=== PATIENT | male | born 1950 | race Caucasian/White ===

== ENCOUNTER 2024-06-18 17:04 | Inpatient (IN) | payer MEDICARE, OTHER, SELFPAY ==
[2024-06-18] VITALS (14 sets, daily range): BP systolic 111–139; BP diastolic 49–69; BMI 21.0
--- NOTE | 2024-06-18 13:05 | ED.PDOC.TRB ---
ED Provider Triage
-
A medical screening examination has been initiated by a qualified medical provider. Based on the assessment performed at this time, it has been determined that an emergent medical condition may exist and the patient has been informed that further
medical evaluation and possible additional diagnostic testing may be needed.
HPI: This is a medical evaluation conducted in person to initiate diagnostic evaluation and provide initial therapeutics. Please see further documentation by the treating clinician.
GENERAL: Alert , in no apparent distress
EYE:
PALE.
NECK: Trachea midline
ENT: No visible abnormalities.
LUNGS: No acute respiratory distress
rhonchi b/l
NEUROLOGICAL: Alert and oriented x 1; seems confused; following some commnads; no weakness on exam, no asterixis, [id number]
SKIN: pale, jaundice
MUSCULOS pneumonia
Ice KELETAL:
PSYCH: confused
73-year-old male with newly diagnosed prostate cancer, on oral chemotherap, getting set up with radiation who presents with a change in mental status noticed maybe around 8 AM this morning when he came down. Over the past few days he has been more
short of breath. One of his physicians took him off prednisone and another medication thinking this was the cause., This is somewhat confusing, his history has been given by his .
He came downstairs this morning and made coffee but then said he felt crappy so he went to lay down. Following that he seemed a bit more disoriented which is unusual for him. He can normally answer questions well. She also thinks he looks pale.
Patient does drink alcohol daily but not excessively. He has never had any alcohol withdrawal. On exam the patient appears pale, possibly jaundice, is disoriented at times seemingly difficult to follow some commands but then follows others. He
has no asterixis. There is no appreciated slurred speech or focal weakness. It is really unclear when this change in mental status happen, the patient was normal last night. They did not speak to him this morning until after 8 AM.
Will order labs including an ammonia
As well as a head CT, I suspect that this is a metabolic cause for his confusion and not a stroke
[2024-06-18 13:53] LABS: ALT (SGPT) 12 U/L (0-50); AST (SGOT) 21 U/L (17-59); Albumin 3.2 g/dl (3.5-5.0); Alkaline Phosphatase 94 U/L (38-126); Blood Urea Nitrogen 35 mg/dl (9-20); Calcium 9.7 mg/dl (8.4-10.2); Carbon Dioxide 25 mmol/L (22-30); Chloride 109 mmol/L (98-107); Glucose 104 mg/dl (70-99); Potassium 4.1 mmol/L (3.5-5.1); Sodium 145 mmol/L (135-145); Total Bilirubin 0.4 mg/dl (0.2-1.3); Total Protein 5.5 g/dl (6.3-8.2); eGFR 24.94
[2024-06-18 13:56] LABS: Alcohol None Detected
[2024-06-18 13:57] LABS: % Basophils 0.4 % (0-2); % Eosinophils 2.5 % (0-6); % Immature Granulocytes 0.5 % (0-0.5); % Lymphocytes 10.8 % (20.5-51.1); % Monocytes 9.3 % (1.7-9.3); % Neutrophils 76.5 % (42.2-75.2); Absolute Eosinophils 0.2 10^3/uL (0-0.7); Absolute Lymphocytes 0.9 10^3/uL (1.2-3.4); Absolute Monocytes 0.8 10^3/uL (0.1-0.6); Absolute Neutrophils 6.3 10^3/uL (1.4-6.5); Hematocrit 15.5 % (39.0-52.0); Mean Corp Hgb Conc. 32.3 g/dL (33.0-37.0); Mean Corpuscular Hgb 30.1 pg (27.0-31.0); Mean Corpuscular Volume 93.4 fL (80.0-94.0); Mean Platelet Volume 10.9 fL (7.4-10.4); Nucleated Red Blood Cells % 0 % (-); Platelet Count 342 10^3/uL (130-400); Red Blood Cell Count 1.66 10^6/uL (4.70-6.10); Red Cell Dist. Width 14.6 % (11.5-14.5); White Blood Cell Count 8.3 10^3/uL (4.8-10.8)
[2024-06-18 14:00] LABS: COVID-19 Antigen Negative (Negative); INR 1.08; PT 13.8 Sec (11.4-14.6)
[2024-06-18 14:01] LABS: APTT 33.5 Sec (23.4-35.0)
[2024-06-18 14:03] LABS: Troponin I < 0.012 ng/ml
--- NOTE | 2024-06-18 14:08 | ED.GENMED ---
History of Present Illness
General
Chief Complaint: Change in Mental Status
Time Seen by Provider: 06/18/24 13:35
History of Present Illness
History of Present Illness:
73-year-old male with history of metastatic prostate cancer, prior stroke on Plavix, hypertension, and hyperlipidemia presents to the emergency department for evaluation of confusion and potential jaundice. According to his spouse he woke up today
profoundly confused and she was concerned that he appeared jaundiced. He is approximately 2 weeks status post radiation bead implantation done at [facility]. He has also been on chemotherapy recently. Patient can provide
essentially no history. Does have COPD and chronic shortness of breath as well as a chronic cough, this is reportedly no worse than normal
Review of Systems
Review of Systems
Allergies reviewed?: Yes
All Other Systems: ROS reviewed and negative except as documented in HPI and ROS
Phy Exam
Physical Exam
Physical Exam:
GEN: Chronically ill-appearing, no acute distress, diffuse hyperpigmentation with scleral pallor no jaundice
Eyes: PERRLA, EOMs intact, no scleral icterus
HENT: NCAT, oral mucosa moist, no JVD, no cervical adenopathy.
Lungs: CTAB, no wheezes, rales, rhonchi, normal chest wall excursion
Cardiac: Bradycardic, regular, no murmur
Abdomen: Protuberant abdomen with soft reducible ventral hernia, grossly tender to palpation in all 4 quadrants with no rigidity
Neuro: Alert, follows commands, oriented to place and self only
MSK: No gross deformity or ecchymosis. No edema. No digital clubbing
Skin: No rashes, petechiae. Normal color, no pallor or jaundice.
Psych: Calm, cooperative, proper hygiene
Course
Orders/Labs/Results
Orders:
Orders
06/18/24 13:04
Electrocardiogram (*1) Urgent
Reason for Study: Other
Other Reason for Exam: ams
CT Head W/o Iv Contrast Urgent
Comment:
Reason For Exam: change in mental status; prostate ca
EKG- Treatment ONCE
06/18/24 13:22
Type+Screen Urgent
Alcohol Urgent
Ammonia Urgent
COVID-19 Antigen Urgent
Source: Nasal Swab
Complete Blood Count/With Diff Urgent
Comprehensive Metabolic Panel Urgent
Ferritin Urgent
Comment: ADD ON
Iron Urgent
Comment: ADSD ON
PTT Urgent
Prothrombin Time Urgent
Reticulocyte Count Urgent
Comment: ADD ON
TSH Urgent
Comment: ADD ON
Total Iron Binding Urgent
Comment: ADD ON
Troponin I Urgent
06/18/24 13:53
ABO2 Urgent
BBK Wristband Number:
Associate notified that ABO2 has been ordered: ARTEMIO
Date: 06/18/24
Time: 13:40
[employer] Coordinator ID: [id number]
06/18/24 13:57
Venous Blood Gas Urgent
%Oxygen/Room Air: 94
06/18/24 14:06
Pantoprazole [Protonix IV] 80 mg IV NOW STA
CR Chest Portable - 1 View Urgent
Comment:
Reason For Exam: SOB
Reason Study Needs to be Portable: Other
06/18/24 14:10
0.9% Sodium Chloride [Nss (Preservative Free)] 20 ml IV NOW STA
06/18/24 14:15
Pantoprazole 80 mg/100 ml Nss [Protonix] 80 mg in 100 ml IV ONCE
06/18/24 14:36
Blood Bank Products [* Blood Bank Products] Urgent
Blood Bank Products: *Packed RBC Leuko(PRBC's)
Quantity: 2
Transfuse Today: Yes
Reason: Anemia
06/18/24 Dinner
Regular
At Your Request: Full Participation
Does patient need a safe tray?: No
06/18/24 16:38
Admit/Transfer Patient As Directed
Co-Sign Provider:
Level of Care: Inpatient admission
Assign to:: Medical/Surgical
Physician / Group: Brent
Diagnosis: Anemia, TME
Reason for Hospitalization: Anemia, TME
Expected length of stay greater than two midnights?: Yes
ELOS- Estimated Length of Stay in days: 2
I certify the patient meets the requirements for IP care: Yes
PRN Pain Medication Management As Directed
May give lesser potent ordered pain med per pt: Yes
preference::
Protocol:: Medication orders for pain may be administered in a
manner that supports deferring to patient preference
when the pt is:
- Requesting an ordered lesser potent pain medication.
Least to most potent pain medications are defined
as: acetaminophen < NSAID < tramadol < opioids
(morphine, oxycodone, hydromorphone).
- Requesting a lesser dose of the same medication IF
ORDERED.
- Requesting a less intrusive route of administration
if both routes are prescribed by the provider (PO <
IV).
06/18/24 16:41
Code Status As Directed
Resuscitation Status: Full Code
06/18/24 18:53
Urinalysis Reflex To Culture Urgent
Date Specimen was Collected: 06/18/24
Time Specimen was Collected: 18:45
06/18/24 19:08
Atorvastatin [Lipitor] 20 mg PO QPM
Ipratropium/Albuterol Sulfate [Duoneb] 3 ml INH R Q4HPRN PRN
Polyethylene Glycol Powder [Miralax] 17 grams PO DAILYPRN PRN
06/18/24 19:08
Add On- LAB Routine
Tests Added?: TIBC, IRON, Ferrtin, TSH
GASTROINTESTINAL CONSULT Routine
Consulting Provider: Michelle Ryan
Was physician already notified: Yes
Urinalysis Reflex To Culture Routine
Urine Drug Abuse Screen Routine
Bladder Scan As Directed
Follow Bladder Retention/Intermittent Cath Algorithm?: Yes
PRN if no void in __ hours: 6
Frequency: Per Retention Algorithm
If Bladder Scan Result >: 400
then:: Straight cath
Medical Records Request [Obtain Records] As Directed
Dates of Information to be Released: recent oncology visit
Type of Information Requested: Entire Record
Sequential Compression Device [Pneumatic Compression Sleeves] As Directed
Type: Knee high
Straight Cath As Directed
Frequency: Per Retention Algorithm
Additional Instructions: straight cath as needed per acute urinary retention algorithm for 24 hrs
Additional Instructions: for bladder scan greater than 400 mL
Physical Therapy Consult [Pt Eval And Treat] Routine
Activity Level: Beach Chair
DX Deep Vein Thrombosis Video Routine
06/18/24 20:00
Carvedilol [Coreg] 6.25 mg PO BID
Pantoprazole [Protonix IV] 40 mg IV BID
06/19/24 06:00
CBC/With Diff [Complete Blood Count/With Diff] IN AM
CMP [Comprehensive Metabolic Panel] IN AM
06/19/24 08:00
Amlodipine [Norvasc] 10 mg PO DAILY
Calcium Carbonate [Oscal Carter 500] 500 mg PO DAILY
FOLic ACID [Folvite] 0.4 mg PO DAILY
Abnormal Lab Results
06/18/24 06/18/24
13:22 13:57
RBC 1.66 L 10^6/uL
(4.70-6.10)
Hgb 5.0 L* g/dL
(13.0-18.0)
Hct 15.5 L* %
(39.0-52.0)
MCHC 32.3 L g/dL
(33.0-37.0)
RDW 14.6 H %
(11.5-14.5)
MPV 10.9 H fL
(7.4-10.4)
Absolute Lymphs (auto) 0.9 L 10^3/uL
(1.2-3.4)
Absolute Monos (auto) 0.8 H 10^3/uL
(0.1-0.6)
Neutrophils % 76.5 H %
(42.2-75.2)
Lymphocytes % 10.8 L %
(20.5-51.1)
Retic Count 3.1 H %
(0.4-2.8)
VBG pH 7.29 L
(7.32-7.43)
VBG pO2 90 H mmHg
(30-50)
Chloride 109 H mmol/L
(98-107)
BUN 35 H mg/dl
(9-20)
Creatinine 2.6 H mg/dL
(0.7-1.3)
Glucose 104 H mg/dl
(70-99)
Iron 21 L ug/dl
(49-181)
% Saturation 5 L %
(20-50)
Ferritin 15.8 L ng/ml
(17.9-464.0)
Ammonia < 9 L umol/L
(9-30)
Total Protein 5.5 L g/dl
(6.3-8.2)
Albumin 3.2 L g/dl
(3.5-5.0)
Crossmatch IS Only See Detail
06/18/24 13:22
06/18/24 13:22
Vital Signs
Initial and Last Documented VS:
Initial Vital Signs
Temp Pulse Resp Pulse Ox
97.7 F 54 16 94
06/18/24 12:57 06/18/24 12:57 06/18/24 12:57 06/18/24 12:57
Last Documented Vital Signs
Temp Pulse Resp BP Pulse Ox
98.2 F 60 16 139/55 93
06/18/24 19:10 06/18/24 19:10 06/18/24 19:10 06/18/24 19:10 06/18/24 19:10
MDM/Problems Addressed
MDM/Problems Addressed:
Confusion is not clear, may be multifactorial in the setting of severe anemia and possible CKD/LEIA. Patient does have heme positive stool, may be falsely positive in the setting of recent radioactive bead placement in the prostate or hemorrhoidal
bleeding, and is not grossly melanotic to suggest a brisk upper GI bleed. Nevertheless we will start on PPI infusion and blood transfusion is ordered will be admitted to the hospitalist service
Comment
Comment:
EKG independently interpreted by me shows a sinus bradycardia, patient motion artifact profoundly limits interpretation however there appears to be a lateral ST depression, no priors for comparison
*Critical Care Note
Total Time (30-74mins, 75-104mins- exclusive of procedures): 35 minutes
comment:
Critical care time: 35 min
Critical care time was exclusive of: Separately billable procedures, treating other patients, and teaching time
Critical care was necessary to treat or prevent imminent or life-threatening deterioration of the following conditions: severe anemia
Critical care time spent personally by me on the following activities:
[x] Review of old charts
[x] Obtaining history from patient or surrogate
[x] Ordering and review of the laboratory studies
[x] Ordering and review of radiographic studies
[x] Ordering and performing treatments and interventions
[x] Patient patient's response to treatment
[x] Development of treatment plan with patient or surrogate
ED Attending Note
-
Portions of this chart may have been created with voice recognition software.� Occasional wrong word or��sound alike� substitutions may have occurred due to the inherent limitations of voice recognition software.
Discharge Plan
Departure
Patient Disposition: Admit
Date of Disposition: 06/18/24
Time of Disposition: 14:37
Admit to: Med/Surg
Presentation/result/management discussed w/ accepting MD/DO: Hospitalist
Discharge Problem:
Symptomatic anemia, Acute metabolic encephalopathy
Interventions
Interventions:
*Risk Screen - Suicide Last Done: 06/18/24 13:43
*General Assessment Last Done: 06/18/24 13:43
*Neglect/Abuse Screening Last Done: 06/18/24 13:43
ED- Fall Risk Assessment Last Done: 06/18/24 13:43
*ED COVID-19 Vaccine History Last Done: 06/18/24 20:06
*Nursing Disposition Last Done: 06/18/24 19:01
ED- Neurological Assessment Last Done: 06/18/24 13:43
ED- Cardiac Assessment Last Done: 06/18/24 13:43
ED Swallowing Screen Last Done: 06/18/24 17:33
Discharge Date and Time
Discharge Date/Time: 06/18/24 19:01
[2024-06-18 14:10] LABS: Venous Blood Gas B.E. -3.1 mmol/L (-4 to +4); Venous Blood Gas HCO3 23.1 mmol/L (22-27); Venous Blood Gas O2 Sat % 99.2 %; Venous Blood Gas pCO2 48 mmHg (35-48); Venous Blood Gas pH 7.29 (7.32-7.43); Venous Blood Gas pO2 90 mmHg (30-50)
[2024-06-18] MEDS: PROTONIX IV 80 MG IV (14:21)
[2024-06-18] MEDS: NSS (PRESERVATIVE FREE) 20 ML IV (14:21)
[2024-06-18] MEDS: PROTONIX 100 IV (14:21)
[2024-06-18 14:41] LABS: Ammonia < 9 umol/L (9-30)
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
[2024-06-18 17:53] LABS: Reticulocyte Count 3.1 % (0.4-2.8)
[2024-06-18 19:54] LABS: Urine Albumin 1+ (Neg - Trace); Urine Bilirubin 1+ (Negative); Urine Character Slightly Cloudy (Clear); Urine Color Amber; Urine Glucose Negative (Negative); Urine Ketone Negative (Negative); Urine Leukocyte 2+ (Negative); Urine Nitrite Negative (Negative); Urine Occult Blood Negative (Negative); Urine Specific Gravity 1.025 (<1.030); Urine Urobilinogen Negative (Neg - 1+)
[2024-06-18 19:56] LABS: Iron 21 ug/dl (49-181)
[2024-06-18] MEDS: LIPITOR 20 MG PO (19:57)
[2024-06-18] MEDS: COREG 6.25 MG PO (19:57)
[2024-06-18 20:05] LABS: Percent Saturation 5 % (20-50); Total Iron Binding Capacity 381 ug/dl (261-462)
[2024-06-18 20:14] LABS: TSH 3.32 uIU/ml (0.47-4.68)
[2024-06-18 20:15] LABS: Urine Bacteria Moderate (Negative); Urine Red Blood Cell 0-2 /HPF (0-2); Urine Squamous Cell >30 /LPF (Few); Urine White Cell >100 /HPF (0-5)
[2024-06-18 20:18] LABS: Ferritin 15.8 ng/ml (17.9-464.0)
[2024-06-18] MEDS: THIAMINE INJECTION 200 MG IV (21:06)
[2024-06-18] MEDS: MELATONIN 5 MG PO (22:17)
[2024-06-19] VITALS (12 sets, daily range): BP systolic 96–179; BP diastolic 41–92
[2024-06-19] MEDS: MELATONIN 5 MG PO (01:12)
[2024-06-19 03:50] LABS: Urine Albumin Trace (Neg - Trace); Urine Bilirubin Negative (Negative); Urine Character Slightly Cloudy (Clear); Urine Color Yellow; Urine Glucose Negative (Negative); Urine Ketone Negative (Negative); Urine Leukocyte 1+ (Negative); Urine Nitrite Negative (Negative); Urine Occult Blood Negative (Negative); Urine Urobilinogen Negative (Neg - 1+)
[2024-06-19 03:56] LABS: Amphetamines Negative (Negative); Barbiturates Negative (Negative); Benzodiazepines Negative (Negative); Buprenorphine Negative (Negative); Cocaine Negative (Negative); Marijuana Negative (Negative); Methadone Negative (Negative); Methamphetamines Negative (Negative); Opiates Negative (Negative); Phencyclidine Negative (Negative); Tricyclic Antidepressants Negative (Negative)
[2024-06-19 04:21] LABS: Urine Squamous Cell >30 /LPF (Few)
[2024-06-19 04:22] LABS: Urine Mucus Moderate
[2024-06-19 04:23] LABS: Urine Amorphous Seen
[2024-06-19 04:24] LABS: Urine Hyaline Cast >15 /LPF (0-2); Urine Urothelial Cell >30 /LPF (FEW)
[2024-06-19 04:51] LABS: Urine Bacteria Many (Negative); Urine White Cell >100 /HPF (0-5)
[2024-06-19 05:26] LABS: ALT (SGPT) 11 U/L (0-50); AST (SGOT) 23 U/L (17-59); Albumin 2.9 g/dl (3.5-5.0); Alkaline Phosphatase 86 U/L (38-126); Blood Urea Nitrogen 40 mg/dl (9-20); Calcium 8.9 mg/dl (8.4-10.2); Carbon Dioxide 23 mmol/L (22-30); Chloride 110 mmol/L (98-107); Estimated Creatinine Clearance 19 ml/min; Glucose 104 mg/dl (70-99); Potassium 3.9 mmol/L (3.5-5.1); Sodium 145 mmol/L (135-145); Total Bilirubin 1.4 mg/dl (0.2-1.3); Total Protein 5.3 g/dl (6.3-8.2); eGFR 22.81
[2024-06-19 06:09] LABS: % Basophils 0.3 % (0-2); % Eosinophils 2.1 % (0-6); % Immature Granulocytes 0.5 % (0-0.5); % Lymphocytes 8.1 % (20.5-51.1); Absolute Eosinophils 0.2 10^3/uL (0-0.7); Absolute Immature Granulocytes 0.1 10^3/uL (0-0.05); Absolute Lymphocytes 0.9 10^3/uL (1.2-3.4); Absolute Monocytes 0.9 10^3/uL (0.1-0.6); Absolute Neutrophils 8.7 10^3/uL (1.4-6.5); Hematocrit 20.3 % (39.0-52.0); Hemoglobin 6.8 g/dL (13.0-18.0); Mean Corp Hgb Conc. 33.5 g/dL (33.0-37.0); Mean Corpuscular Hgb 29.7 pg (27.0-31.0); Mean Corpuscular Volume 88.6 fL (80.0-94.0); Mean Platelet Volume 10.7 fL (7.4-10.4); Nucleated Red Blood Cells % 0 % (-); Platelet Count 297 10^3/uL (130-400); Red Blood Cell Count 2.29 10^6/uL (4.70-6.10); White Blood Cell Count 10.7 10^3/uL (4.8-10.8)
--- NOTE | 2024-06-19 07:09 | PTCARENOTE ---
Nisha ARREGUIN notified about patientt`s hgb 6.8. PRBC order placed.
[2024-06-19] MEDS: FOLVITE 0.4 MG PO (08:24)
[2024-06-19] MEDS: OSCAL CAL 500 500 MG PO (08:24)
[2024-06-19] MEDS: NSS (PRESERVATIVE FREE) 10 ML IV (08:24)
[2024-06-19] MEDS: COREG 6.25 MG PO (08:24)
[2024-06-19] MEDS: NORVASC 10 MG PO (08:24)
[2024-06-19] MEDS: THIAMINE INJECTION 200 MG IV (08:25)
[2024-06-19] MEDS: PROTONIX IV 40 MG IV (08:25)
[2024-06-19 10:29] LABS: LDH 248 U/L (120-246)
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
[2024-06-19 12:33] LABS: Urine Sodium 7 mmol/L (30-90)
[2024-06-19] MEDS: ATIVAN 1 MG PO (13:34)
--- NOTE | 2024-06-19 14:02 | W.PN.HOSP.TC ---
Today's Communication/Plan
-
Ongoing workup for anemia and LEIA? CKD
Transfuse
Follow hemoglobin
Follow renal function
Avoid NSAIDs
Has been off DAPT since admission
PPI
Outpatient medical records requested
Assessment / Plan
Assessment / Plan
IMPRESSION:
Altered mental status/presentation with confusion.
Severe anemia with hemoglobin of 5.
Other conditions:
Prostate carcinoma.
COPD not on any baseline medications.
Active tobacco smoker.
CKD unknown stage/baseline creatinine.
Remote history of CVA on dual antiplatelet therapy.
Essential hypertension.
Protein calorie malnutrition with BMI of 19
PLAN:
Altered mental status, presentation with confusion
Toxic metabolic encephalopathy suspect multifactorial in the patient with severe anemia, CKD question LEIA.
No focal findings on neurologic exam.
CT scan of the head with no acute abnormalities.
Check urine drug screen reports using marijuana.
Monitor closely addressing below.
Severe anemia, normocytic
Heme positive stool on presentation
Hemodynamically stable with no evidence of acute blood loss
Noted elevated BUN 35/creatinine 2.6, unknown baseline.
Ammonia level within normal limits.
Normal LFT, bilirubin, less likely hemolysis.
Patient is on dual antiplatelet therapy for remote CVA, NSAIDs, recent prednisone given as a part of treatment for prostate carcinoma.
High risk and suspect upper GI source with slow blood loss.
History of colon resection for complicated diverticulitis with colostomy reversal, reports recent colonoscopy in outside institution with no abnormalities.
Type and cross.
Transfuse 2 units of packed red blood cells on 06/18 with hemoglobin at 6.8. Transfuse to keep hemoglobin above 8�9
Follow hemoglobin.
Hold DAPT, avoid NSAIDs, currently not on steroids.
IV PPI/Protonix twice daily.
May require inpatient workup including endoscopy.
Iron levels ordered
EPO, retic level
Gastroenterology consultation. May need upper endoscopy while inpatient.
CKD? LEIA unknown baseline
Obtain outpatient medical records.
Monitor hemoglobin with transfusion
Avoid hypotension
Hold valsartan
Bladder scan for retention
Subjective shortness of breath.
Check pro CHF BNP.
Consider echocardiogram.
Consider Lasix with transfusion
COPD not on home O2.
Exam with no bronchospasm
Continue short acting bronchodilators as needed
Essential hypertension
Continue Norvasc, hold losartan as above.
Prostate carcinoma.
Recent beads implantation.
Recently on Zytiga and prednisone.
Reports no distant metastatic disease.
Plan for radiation therapy
Primary oncologist at [facility]
Will obtain medical records.
Bladder scan for retention.
DVT prophylaxis/mechanical.
Full code.
Anticipated Discharge: 24 - 48 hours
Subjective/Interval History
-
Date of Service: June 19, 2024
Objective Data
-
Labs:
Laboratory Results
06/19/24
04:19
WBC 10.7
Hgb 6.8 L* D
Hct 20.3 L*
Plt Count 297
Sodium 145
Potassium 3.9
Chloride 110 H
Carbon Dioxide 23
BUN 40 H
Creatinine 2.8 H
Glucose 104 H
Calcium 8.9
Total Bilirubin 1.4 H D
AST 23
ALT 11
Alkaline Phosphatase 86
Vital Signs:
Vital Signs
Temp Pulse Resp BP Pulse Ox
98.1 F 62 18 140/65 94
06/19/24 13:07 06/19/24 13:07 06/19/24 13:07 06/19/24 13:07 06/19/24 13:07
I&O
06/18/24 06/19/24 06/20/24
06:59 06:59 06:59
Intake Total 980 / 980 250 / 250
Output Total 300 / 300
Balance 680 / 680 250 / 250
Physical Exam
-
General: Well Developed and No Apparent Distress
HEENT: Normocephalic, Atraumatic and Moist Mucous Membranes
Respiratory: Clear to Auscultation
Cardiac: Regular Rhythm and S1/S2; Negative Murmur, Rub or Gallop
GI: Soft, Nontender, Nondistended and Normal Bowel Sounds; Negative Organomegaly
Rectal: Deferred by Provider
Musculoskeletal: No Clubbing, No Cyanosis and No Edema
Skin: Negative Rash
Neuro: Nonfocal/Grossly Intact
[2024-06-19] MEDS: BENADRYL 25 MG PO (15:23)
[2024-06-19] MEDS: ATIVAN 1 MG IV ×3 (15:52→19:37)
[2024-06-19] MEDS: LASIX 20 MG IV (16:07)
[2024-06-19 16:45] LABS: NT-proBNP 1900 pg/ml
[2024-06-19] MEDS: NSS (PRESERVATIVE FREE) 0.5 ML IV ×2 (17:52→19:38)
[2024-06-19] MEDS: LIPITOR PO (17:52)
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
[2024-06-19] MEDS: COREG PO (21:21)
[2024-06-19] MEDS: ATIVAN IV (21:24)
[2024-06-19] MEDS: NSS (PRESERVATIVE FREE) IV ×2 (21:25→21:31)
[2024-06-19] MEDS: PROTONIX IV IV (21:31)
[2024-06-19] MEDS: THIAMINE INJECTION IV (21:31)
--- NOTE | 2024-06-19 22:23 | VATNOTE ---
unsuccessful IV restart x3 due to agitation. Recommended IM dose to settle pt down and then VAT to reattempt IV restart.
[2024-06-19] MEDS: ATIVAN 2 MG IM (22:38)
[2024-06-20] MEDS: NSS (PRESERVATIVE FREE) IV (00:11)
[2024-06-20] MEDS: THIAMINE INJECTION IV (00:11)
[2024-06-20] MEDS: PROTONIX IV IV (00:11)
[2024-06-20] MEDS: ATIVAN 1 MG IV ×3 (01:54→20:40)
[2024-06-20] MEDS: NSS (PRESERVATIVE FREE) 0.5 ML IV ×2 (01:54→04:50)
[2024-06-20] MEDS: DUONEB 3 ML INH (05:24)
--- NOTE | 2024-06-20 05:53 | PTCARENOTE ---
Pt's MSAS score at 2100 was 12. Pt's IV site leaking and removed by VAT; unable to place a new site to administer IV Ativan or evening IV medications. Pt still restless but less combative at 2200, but MSAS score is still at an 8 and still unable
to place IV site. House DIRECTOR OF EMERGENCY NURSING [place] notified, order placed for 1x IM Ativan 2mg and provided to pt in left deltoid. IV successfully placed by VAT team at 0150. Pt's score increased back to an 8 at 0200 and pt received PRN IV Ativan 1mg per protocol.
Bilateral wrist restraints and 4 side [address] remain in place.
[2024-06-20 07:40] VITALS: BP 156/68
[2024-06-20] MEDS: COREG PO ×2 (08:15→21:29)
[2024-06-20] MEDS: FOLVITE PO (08:15)
[2024-06-20] MEDS: OSCAL CAL 500 PO (08:16)
[2024-06-20] MEDS: NORVASC PO (08:16)
[2024-06-20] MEDS: THIAMINE INJECTION 200 MG IV ×2 (08:19→21:29)
[2024-06-20] MEDS: PROTONIX IV 40 MG IV ×2 (08:19→21:25)
[2024-06-20] MEDS: NSS (PRESERVATIVE FREE) 10 ML IV ×2 (08:19→21:25)
[2024-06-20] MEDS: STERILE WATER FOR INJECTION 10 ML IV (09:11)
[2024-06-20] MEDS: LASIX 20 MG IV (09:12)
[2024-06-20] MEDS: ROCEPHIN 1000 MG IV (09:12)
--- NOTE | 2024-06-20 10:03 | W.PN.HOSP.TC ---
Today's Communication/Plan
-
Chest x-ray
CBC/CMP.
Aspiration precautions per
Echocardiogram.
Empiric antibiotics for UTI pending cultures.
Continue alcohol withdrawal protocol with addition of IV phenobarbital per
Aspiration precautions.
Plan of care discussed with patient's daughter at the bedside
Assessment / Plan
Assessment / Plan
IMPRESSION:
Altered mental status/presentation with confusion.
Concern for alcohol withdrawal/DT
Severe anemia with hemoglobin of 5.
LEIA on CKD
Acute hypoxic respiratory insufficiency
Elevated pro CHF BNP
Abnormal urinalysis with concern for UTI
Other conditions:
Prostate carcinoma.
COPD not on any baseline medications.
Active tobacco smoker.
CKD 3A�B with baseline creatinine 1.7 on 09/15
Nephrolithiasis
Carotid stenosis 2005
PVD 2008
Remote history of CVA on dual antiplatelet therapy.
Essential hypertension.
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
Protein calorie malnutrition with BMI of 19
Alcohol use disorder suspected
PLAN:
Altered mental status, presentation with confusion
Toxic metabolic encephalopathy suspect multifactorial in the patient with severe anemia, acute kidney injury on CKD, developing alcohol withdrawal with DT, possible UTI
Aspiration risk due to above
No focal findings on neurologic exam.
CT scan of the head with no acute abnormalities.
Ammonia within normal limits
Urine drug screen negative
Progressively deteriorating mental status over the last 24-hour on 06/20, patient progressively confused and agitated.
Confirming history of daily alcohol use from family.
Initiated on MSAS protocol with addition of IV phenobarbital on 06/20.
Acute hypoxic respiratory insufficiency.
Currently on 3 L of nasal cannula oxygen
Aspiration risk.
Elevated pro CHF BNP.
Will check echocardiogram.
Repeat chest x-ray on 06/20
Lasix 20 mg IV given on 06/19, will provide additional dose on 06/20
Continue aspiration precautions
COPD not on home O2.
Exam and presentation with no evidence of bronchospasm
Continue short acting bronchodilators as needed
Concern for UTI with abnormal urinalysis pending cultures.
Presented afebrile with normal white count
Start ceftriaxone pending final cultures
Bladder scan for retention
Severe anemia, normocytic
Heme positive stool on presentation
Hemodynamically stable with no evidence of acute blood loss
Noted elevated BUN 35/creatinine 2.6, unknown baseline.
Normal LFT, bilirubin, less likely hemolysis.
Patient is on dual antiplatelet therapy for remote CVA, NSAIDs, recent prednisone given as a part of treatment for prostate carcinoma.
High risk and suspect upper GI source with slow blood loss.
History of colon resection for complicated diverticulitis with colostomy reversal, reports recent colonoscopy in outside institution with no abnormalities.
Status post transfusion of PRBC 4 units 06/18 - 06/19.
Follow hemoglobin.
Hold DAPT, avoid NSAIDs, currently not on steroids.
IV PPI/Protonix twice daily.
May require inpatient workup including endoscopy.
Iron levels consistent with mixed picture of iron deficiency and anemia of chronic disease
EPO, retic level
Gastroenterology consultation. May need upper endoscopy while inpatient.
LEIA on CKD
Low urine sodium suggesting prerenal stimulating likely anemia
Suspect CKD stage IIIa-b with baseline creatinine at 1.7 on 09/15
Monitor hemoglobin with transfusion
Avoid hypotension
Hold valsartan
Bladder scan for retention
Essential hypertension
Continue Norvasc, hold losartan as above.
Prostate carcinoma locally advanced
Recent beads implantation.
Recently on Zytiga and prednisone.
Reports no distant metastatic disease.
Plan for radiation therapy
Primary oncologist at [facility]
Will obtain medical records.
Bladder scan for retention.
DVT prophylaxis/mechanical.
Full code.
Anticipated Discharge: > 48 hours
Subjective/Interval History
-
Date of Service: June 20, 2024
Objective Data
-
Labs:
Laboratory Results
06/20/24
06:00
WBC Pending
Hgb Pending
Hct Pending
Plt Count Pending
Sodium Pending
Potassium Pending
Chloride Pending
Carbon Dioxide Pending
BUN Pending
Creatinine Pending
Glucose Pending
Calcium Pending
Total Bilirubin Pending
AST Pending
ALT Pending
Alkaline Phosphatase Pending
Vital Signs:
Vital Signs
Temp Pulse Resp BP Pulse Ox
100.2 F 84 18 156/68 97
06/20/24 07:40 06/20/24 07:40 06/20/24 07:40 06/20/24 07:40 06/20/24 07:40
I&O
06/19/24 06/20/24 06/21/24
06:59 06:59 06:59
Intake Total 980 / 980 1000 / 1000
Output Total 300 / 300
Balance 680 / 680 1000 / 1000
Physical Exam
-
General: Well Developed and No Apparent Distress
HEENT: Normocephalic, Atraumatic and Moist Mucous Membranes
Respiratory: Rales and Rhonchi
Cardiac: Regular Rhythm and S1/S2; Negative Murmur, Rub or Gallop
GI: Soft, Nontender, Nondistended and Normal Bowel Sounds; Negative Organomegaly
Rectal: Deferred by Provider
Musculoskeletal: No Clubbing, No Cyanosis and No Edema
Skin: Negative Rash
Neuro: Other (Agitated, lethargic noncommunicative.)
--- NOTE | 2024-06-20 10:23 | CM ---
canvassing manager reviewed patient's chart and met with patient and family at bedside, med sitter in place along with restraints. Per family this agitation is unusual for patient.
Plan; To follow with patient progress.
[2024-06-20] MEDS: PHENOBARBITAL 97.5 MG IV ×3 (10:26→21:24)
[2024-06-20 11:36] LABS: ALT (SGPT) 17 U/L (0-50); AST (SGOT) 44 U/L (17-59); Albumin 3.4 g/dl (3.5-5.0); Alkaline Phosphatase 96 U/L (38-126); Blood Urea Nitrogen 34 mg/dl (9-20); Calcium 8.9 mg/dl (8.4-10.2); Carbon Dioxide 20 mmol/L (22-30); Chloride 112 mmol/L (98-107); Estimated Creatinine Clearance 24 ml/min; Glucose 71 mg/dl (70-99); Potassium 3.3 mmol/L (3.5-5.1); Sodium 149 mmol/L (135-145); Total Bilirubin 1.4 mg/dl (0.2-1.3); Total Protein 5.8 g/dl (6.3-8.2); eGFR 30.47
--- NOTE | 2024-06-20 12:10 | PN.CDI ---
CDI
- -
CDI:
Physician Documentation Request
Admit Date: 06/18/24 17:04
Dear Doctor Brent,
Please review the following and provide your response in the progress notes.
Clinical Indicators:
Pt admitted with altered mental stasis, toxic metabolic encephalopathy, and LEIA.
06/20 Progress note: ' Other conditions:...Protein calorie malnutrition with BMI of 19...'
If possible, please provide in your progress notes, additional specificity regarding the severity of the malnutrition:
Mild
Moderate
Severe
Other (please specify)
Unknown
[place] [employer] Criteria ([facility]ist 2017)
2 or more criteria must be present for either
non severe or severe malnutrition
Note that the criteria differs related to the
presence of an acute or chronic illness
Acute Illness Chronic Illness
Energy Intake Non Severe: <75% for >7 days Non Severe: <75% for >1 month
Severe: <50% for >5 days Severe: <75% for >1 month
Weight Loss Non Severe: 1-2% over 1 week Non Severe: 5% over 1 month
5% over 1 month 7.5% over 3 months
7.5% over 3 months 10% over 6 months
1 year N/A 20% over 1 year
Severe: >2% over 1 week Severe: >5% over 1 month
>5% over 1 month >7.5% over 3 months
>7.5% over 3 months >10% over 6 months
1 year N/A >20% over 1 year
Body Fat Non Severe: Mild Decrease Non Severe: Mild Loss
Severe: Moderate Decrease Severe: Severe Loss
Muscle Mass Non Severe: Mild Decrease Non Severe: Mild Loss
Severe: Moderate Decrease Severe: Severe Loss
Fluid Accumulation Non Severe: Mild Accumulation Non Severe: Mild Accumulation
Severe: Moderate to severe Severe: Moderate to severe
accumulation accumulation
Reduced Biomedical Scientist Strength Non Severe: N/A Non Severe: N/A
Severe: Measurably reduced Severe: Measurably reduced
Additional criteria that can be used to Determine if Mild or Moderate Malnutrition (Merck Manual 2018)
Use of terms such as suspected, likely, concern for, or probable (associated with a specific diagnosis that is being evaluated, monitored, or treated as if it exists) are acceptable and can be coded in the inpatient setting, when documented at the
time of discharge.
Thank you,
Jennifer Chatman RN, BSN
CDI Specialist
Available via [place] Text
Please use your independent medical judgment in providing your response.
[2024-06-20 12:18] LABS: Hematocrit 29.2 % (39.0-52.0); Mean Corp Hgb Conc. 34.2 g/dL (33.0-37.0); Mean Corpuscular Hgb 29.1 pg (27.0-31.0); Mean Corpuscular Volume 84.9 fL (80.0-94.0); Mean Platelet Volume 10.2 fL (7.4-10.4); Platelet Count 367 10^3/uL (130-400); Red Blood Cell Count 3.44 10^6/uL (4.70-6.10); Red Cell Dist. Width 16.1 % (11.5-14.5); White Blood Cell Count 6.8 10^3/uL (4.8-10.8)
--- NOTE | 2024-06-20 12:19 | PHA.VAN.IN ---
Assessment
- Assessment
Renal Function: Unknown baseline
Concomitant Antimicrobials: ceftriaxone
Plan
- Plan
Initial / Loading Dose: 1500mg - administration pending
Maintenance Regimen: dosing by level
Monitoring: random 06/21 600
Pharmacokinetics Vancomycin I
- -
Patient Age: 73
Patient Sex: Male
Vancomycin Day #: 1
Indication: Genito-Urinary Tract
Requesting Provider: Dr. Kennedy
Pertinent Antimicrobial Allergies:
NKDA
Height / Weight:
Height 5 ft 6 in
Actual Weight 58.995 kg
Pertinent Past Medical History: Prostate carinoma
- Vital Signs / Lab Results
Temp Pulse Resp BP Pulse Ox
100.2 F 84 18 156/68 97
06/20/24 07:40 06/20/24 07:40 06/20/24 07:40 06/20/24 07:40 06/20/24 07:40
Lab Results - Hematology
06/18/24 06/19/24 06/19/24
13:22 04:19 06:00
WBC 8.3 10.7 Cancelled
06/20/24
11:02
WBC 6.8
Lab Results - Chemistry
06/18/24 06/19/24 06/19/24
13:22 04:19 06:00
BUN 35 H 40 H Cancelled
Creatinine 2.6 H 2.8 H Cancelled
Estimated Creat Clear 19 Cancelled
Albumin 3.2 L 2.9 L Cancelled
06/20/24
11:02
BUN 34 H
Creatinine 2.2 H
Estimated Creat Clear 24
Albumin 3.4 L
Lab Results - Urine
06/18/24 06/19/24
18:53 03:34
Urine Nitrite (Reflex) Negative Negative
Leukocyte Esterase Rfl 2+ A 1+ A
Urine WBC (Reflex) >100 A >100 A
Ur Squamous Epith Cells >30 >30
Urine Bacteria (Reflex) Moderate A Many A
Microbiology Results
06/19/24 03:34 Urine Culture - Final
Urine
06/18/24 18:53 Urine Culture - Preliminary
Urine Enterococcus species
Streptococcus species
[2024-06-20 12:55] LABS: Magnesium 1.9 mg/dl (1.6-2.3)
[2024-06-20] MEDS: VANCOCIN 300 MG IV (13:30)
[2024-06-20] MEDS: KCL 270 MEQ IV (13:30)
[2024-06-20] MEDS: VANCOCIN 300 ML IV (13:30)
--- NOTE | 2024-06-20 13:31 | W.PN.GI.CBS2 ---
Today's Communication / Plan
-
Mental status worsened and not able to undergo any sedation for endoscopic testing at this point
Hbg stable, C/w PPI BID
Please call GI back when mental status improves
Assessment / Plan
-
Jerome is a 73yo M with h/o CVA 1999 on plavix, remote prostate cancer, COPD and daily ETOH intake who was admitted for SOB and weakness with change in mental status. His is bedside today. Denies complaints of abd pain, N/V or PO intolerance
at home. Vitals stable. Labs reviewed with anemia iron deficiency and elevated Cr. Normal Calcium. No prior EGD. Last Cscope was Spring 2023 at [facility] that was normal.
Impression
- Iron def anemia
- Elevated Cr
- Confusion
- Remote stroke
- Chronic Plavix use last 06/18
- COPD
- Remote prostate ca
- Daily ETOH intake
Recommendations
- Hold plavix
- Unclear cause of confusion and currently not in state to undergo sedation or GI testing. Hold on EGD
- Hbg thus far stable
- SPEP and immunofixation
- Appreciate renal recs
At this juncture will hold on GI workup until mental status improves.
Please call us back when able to tolerate EGD .
Subjective
Subjective
Date of Service: June 20, 2024
Patient had code purple overnight. He is in restraints this AM and per family awaiting transfer to [facility]?
Objective
Data Reviewed
Laboratory Data:
Laboratory Results
06/20/24 11:02
06/20/24 11:02
Laboratory Results
PT 13.8 Sec (11.4-14.6) 06/18/24 13:22
INR 1.08 06/18/24 13:22
APTT 33.5 Sec (23.4-35.0) 06/18/24 13:22
Magnesium 1.9 mg/dl (1.6-2.3) 06/20/24 11:02
Total Bilirubin 1.4 mg/dl (0.2-1.3) H 06/20/24 11:02
AST 44 U/L (17-59) 06/20/24 11:02
ALT 17 U/L (0-50) 06/20/24 11:02
Alkaline Phosphatase 96 U/L (38-126) 06/20/24 11:02
Vital Signs and I&O:
Vital Signs
Temp Pulse Resp BP Pulse Ox
100.2 F 84 18 156/68 97
06/20/24 07:40 06/20/24 07:40 06/20/24 07:40 06/20/24 07:40 06/20/24 07:40
I&O
06/19/24 06/20/24 06/21/24
06:59 06:59 06:59
Intake Total 980 / 980 1000 / 1000
Output Total 300 / 300
Balance 680 / 680 1000 / 1000
Physical Exam
Physical Exam
GEN: No acute distress, sedated and confused
HEENT: anicteric, extraocular movements intact, clear oropharynx without exudates
GI: soft, non-distended, not tender to palpation, normal active bowel sounds, no hepatosplenomegaly
EXT: warm, well perfused, no edema bilaterally
NEURO: AAOx3, non-focal
[2024-06-20 15:15] VITALS: BP 149/57
[2024-06-20] MEDS: FERRLECIT 110 MG IV (15:36)
[2024-06-20 16:05] LABS: Erythropoietin (EPO) 277 mU/mL (4-27)
--- NOTE | 2024-06-20 16:40 | W.PN.NEPH.PH ---
Today's Communication / Plan
-
see plan
Assessment/Plan
-
Assessment
Acute anemia
Iron deficiency
Acute kidney injury
LEIA with CKD 3 cr 1.7-1.8
COPD prostate cancer
Plan
LEIA-suspect in setting of severe anemia
cr improving to 2.2, UOP not measured with incontinence, follow pVR
noted events today suspected DT started on Phenobarbital
concern of vol overload with PRBC and SOB s/p lasix this am , CXR noted, echo ordered
worsening hypernatremia-suspect will get worse as he is NPO
likely benefit D5W at low rate once k is repleted
Hb better post pRBC, EGD hold with current status
BP stable, holding ARB, other meds on hold with AMS
monitor evolving met acidosis
[facility] records noted cr seem baseline 1.7-1.8, last lab 11/2023
d/w family and nursing
d/w primary
-
-
Date of Service: June 20, 2024
CC / HPI / ROS
-
Chief Complaint:
LEIA
History of Present Illness:
cr better at 2.2, k low 3.3
sodium up 149
BP stable
Altered and in restraints
Review of Systems:
can not get history since altered
chr dry cough from COPD per family
Labs
-
Labs:
WBC 6.8 10^3/uL (4.8-10.8) 06/20/24 11:02
RBC 3.44 10^6/uL (4.70-6.10) L 06/20/24 11:02
Hgb 10.0 g/dL (13.0-18.0) L D 06/20/24 11:02
Hct 29.2 % (39.0-52.0) L 06/20/24 11:02
Plt Count 367 10^3/uL (130-400) D 06/20/24 11:02
Sodium 149 mmol/L (135-145) H 06/20/24 11:02
Potassium 3.3 mmol/L (3.5-5.1) L 06/20/24 11:02
Chloride 112 mmol/L (98-107) H 06/20/24 11:02
Carbon Dioxide 20 mmol/L (22-30) L 06/20/24 11:02
BUN 34 mg/dl (9-20) H 06/20/24 11:02
Creatinine 2.2 mg/dL (0.7-1.3) H 06/20/24 11:02
eGFR 30.47 06/20/24 11:02
Glucose 71 mg/dl (70-99) 06/20/24 11:02
Calcium 8.9 mg/dl (8.4-10.2) 06/20/24 11:02
Usd-S-Dtschtnliil Pept 1900 pg/ml 06/19/24 04:19
Albumin 3.4 g/dl (3.5-5.0) L 06/20/24 11:02
Physical Exam
-
Vital Signs:
Vital Signs
Temp Pulse Resp BP Pulse Ox
97.4 F 85 16 149/57 93
06/20/24 15:15 06/20/24 15:15 06/20/24 15:15 06/20/24 15:15 06/20/24 15:15
Cardiovascular:: Regular rate and rhythm
Respiratory:: Bilateral: Coarse
Lung Excursion:: Abnormal
Abdomen:: Nontender and Soft
Extremity Edema:: None: Bilateral:
Mack Catheter: No
[2024-06-20] MEDS: LIPITOR PO (17:18)
[2024-06-20 18:53] LABS: Blood Urea Nitrogen 33 mg/dl (9-20); Calcium 8.6 mg/dl (8.4-10.2); Carbon Dioxide 20 mmol/L (22-30); Chloride 112 mmol/L (98-107); Estimated Creatinine Clearance 24 ml/min; Glucose 66 mg/dl (70-99); Potassium 3.1 mmol/L (3.5-5.1); Sodium 151 mmol/L (135-145); eGFR 30.47
[2024-06-20 23:22] VITALS: BP 164/71
[2024-06-21] MEDS: KCL 160 MEQ IV (00:01)
[2024-06-21] MEDS: DUONEB 3 ML INH ×2 (01:27→22:14)
[2024-06-21] MEDS: ATIVAN 1 MG IV ×2 (01:47→08:03)
[2024-06-21] MEDS: D5W with KCL 20 MEQ 1000 IV ×2 (01:53→08:32)
[2024-06-21 07:43] VITALS: BP 168/76
[2024-06-21] MEDS: FOLVITE PO (08:05)
[2024-06-21] MEDS: COREG PO ×2 (08:05→21:45)
[2024-06-21] MEDS: NORVASC PO (08:05)
[2024-06-21] MEDS: NSS (PRESERVATIVE FREE) 10 ML IV ×2 (08:07→21:46)
[2024-06-21] MEDS: PROTONIX IV 40 MG IV ×2 (08:07→21:45)
[2024-06-21] MEDS: OSCAL CAL 500 PO (08:08)
[2024-06-21] MEDS: THIAMINE INJECTION 200 MG IV (08:08)
[2024-06-21] MEDS: PHENOBARBITAL 97.5 MG IV ×3 (08:10→21:51)
[2024-06-21] MEDS: ROCEPHIN 1000 MG IV (09:26)
[2024-06-21] MEDS: STERILE WATER FOR INJECTION 10 ML IV (09:26)
[2024-06-21 09:47] LABS: % Basophils 0.4 % (0-2); % Eosinophils 1.5 % (0-6); % Immature Granulocytes 0.4 % (0-0.5); % Lymphocytes 6.5 % (20.5-51.1); % Monocytes 10.7 % (1.7-9.3); % Neutrophils 80.5 % (42.2-75.2); Absolute Eosinophils 0.1 10^3/uL (0-0.7); Absolute Lymphocytes 0.6 10^3/uL (1.2-3.4); Absolute Neutrophils 7.7 10^3/uL (1.4-6.5); Hematocrit 29.9 % (39.0-52.0); Hemoglobin 10.1 g/dL (13.0-18.0); Mean Corp Hgb Conc. 33.8 g/dL (33.0-37.0); Mean Corpuscular Hgb 29.6 pg (27.0-31.0); Mean Corpuscular Volume 87.7 fL (80.0-94.0); Mean Platelet Volume 10.4 fL (7.4-10.4); Nucleated Red Blood Cells % 0 % (-); Platelet Count 370 10^3/uL (130-400); Red Blood Cell Count 3.41 10^6/uL (4.70-6.10); Red Cell Dist. Width 16.4 % (11.5-14.5); White Blood Cell Count 9.5 10^3/uL (4.8-10.8)
[2024-06-21] MEDS: ATIVAN 2 MG IV ×2 (09:54→17:48)
[2024-06-21 10:04] LABS: Vancomycin Random 12.9 ug/ml
[2024-06-21 10:25] LABS: Blood Urea Nitrogen 30 mg/dl (9-20); Calcium 8.7 mg/dl (8.4-10.2); Carbon Dioxide 20 mmol/L (22-30); Chloride 118 mmol/L (98-107); Estimated Creatinine Clearance 27 ml/min; Glucose 75 mg/dl (70-99); Potassium 3.3 mmol/L (3.5-5.1); Sodium 155 mmol/L (135-145); eGFR 34.16
--- NOTE | 2024-06-21 12:03 | CM ---
Patient seen bedside with family.
Patient resting/sleeping at present.
Off restraints.
Medistter maintained.
Family aware of CM availability for d/c needs when medically stable.
PT/OT evaluations pending.
Continue IV anbx and oxygen.
Plan: to be determined, possible skilled rehab needs once medically able to participate.
[2024-06-21] MEDS: FERRLECIT 110 MG IV (13:18)
--- NOTE | 2024-06-21 14:42 | W.PN.HOSP.TC ---
Today's Communication/Plan
-
Continue delirium tremens management with MSAS and phenobarbital.
Thiamine
Aspiration precautions
Consulted antibiotics to cover possible aspiration and enterococcal bacteriuria/amoxicillin.
Replete free water
Follow BMP
Assessment / Plan
Assessment / Plan
IMPRESSION:
Altered mental status/presentation with confusion.
Concern for alcohol withdrawal/DT
Severe anemia with hemoglobin of 5.
LEIA on CKD
Hypernatremia
Hypokalemia
Acute hypoxic respiratory insufficiency
Elevated pro CHF BNP
Aspiration risk
Abnormal urinalysis with concern for UTI
Other conditions:
Prostate carcinoma.
COPD not on any baseline medications.
Active tobacco smoker.
CKD 3A�B with baseline creatinine 1.7 on 09/15
Nephrolithiasis
Carotid stenosis 2005
PVD 2008
Remote history of CVA on dual antiplatelet therapy.
Essential hypertension.
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
Protein calorie malnutrition with BMI of 19
Alcohol use disorder suspected
PLAN:
Altered mental status, presentation with confusion
Toxic metabolic encephalopathy suspect multifactorial in the patient with severe anemia, acute kidney injury on CKD, developing alcohol withdrawal with DT, possible UTI
Aspiration risk due to above
No focal findings on neurologic exam.
CT scan of the head with no acute abnormalities.
Ammonia within normal limits
Urine drug screen negative
Progressively deteriorating mental status over the last 24-hour on 06/20, patient progressively confused and agitated.
Delirium tremens
Initiated on MSAS protocol with addition of IV phenobarbital on 06/20.
Overall improved over the last 24 hours with less agitations, remains lethargic, although opens eyes and follows simple commands.
Acute hypoxic respiratory insufficiency.
Currently on 3 L of nasal cannula oxygen
Aspiration risk.
Elevated pro CHF BNP suspected in settings of large volume blood transfusion given on admission
Echocardiogram pending
Repeat chest x-ray on 06/20 findings consistent with increased vascularity/pulmonary edema.
Lasix 20 mg IV given on 06/19, will provide additional dose on 06/20
Continue aspiration precautions
Antibiotics tailoring to cover aspiration pathogens
COPD not on home O2.
Exam and presentation with no evidence of bronchospasm
Continue short acting bronchodilators as needed
Initial concern for UTI, less likely.
Enterococcal bacteriuria
Blood cultures negative to date
Antibiotics consolidated from ceftriaxone/vancomycin to amoxicillin to complete 3 to 5 days of treatment for bacteriuria.
Monitor for urinary retention
Severe anemia, normocytic
Heme positive stool on presentation
Hemodynamically stable with no evidence of acute blood loss
Noted elevated BUN 35/creatinine 2.6, unknown baseline.
Normal LFT, bilirubin, less likely hemolysis.
Patient is on dual antiplatelet therapy for remote CVA, NSAIDs, recent prednisone given as a part of treatment for prostate carcinoma.
High risk and suspect upper GI source with slow blood loss.
History of colon resection for complicated diverticulitis with colostomy reversal, reports recent colonoscopy in outside institution with no abnormalities.
Status post transfusion of PRBC 4 units 06/18 - 06/19.
Follow hemoglobin.
Hold DAPT, avoid NSAIDs, currently not on steroids.
IV PPI/Protonix twice daily.
May require inpatient workup including endoscopy.
Iron levels consistent with mixed picture of iron deficiency and anemia of chronic disease
EPO at 277
Gastroenterology consultation. May need upper endoscopy while inpatient.
LEIA on CKD
Low urine sodium suggesting prerenal stimulating likely anemia
Suspect CKD stage IIIa-b with baseline creatinine at 1.7 on 09/15
Monitor hemoglobin with transfusion
Avoid hypotension
Hold valsartan
Bladder scan for retention
Essential hypertension
Continue Norvasc, hold losartan as above.
Prostate carcinoma locally advanced
Recent beads implantation.
Recently on Zytiga and prednisone.
Reports no distant metastatic disease.
Plan for radiation therapy
Primary oncologist at [facility]
Will obtain medical records.
Bladder scan for retention.
DVT prophylaxis/mechanical.
Full code.
Anticipated Discharge: > 48 hours
Subjective/Interval History
-
Date of Service: June 21, 2024
Objective Data
-
Labs:
Laboratory Results
06/21/24 06/21/24
09:24 18:00
WBC 9.5
Hgb 10.1 L
Hct 29.9 L
Plt Count 370
Sodium 155 H Pending
Potassium 3.3 L Pending
Chloride 118 H Pending
Carbon Dioxide 20 L Pending
BUN 30 H Pending
Creatinine 2.0 H Pending
Glucose 75 Pending
Calcium 8.7 Pending
Vital Signs:
Vital Signs
Temp Pulse Resp BP Pulse Ox
97.8 F 82 18 168/76 95
06/21/24 07:43 06/21/24 07:43 06/21/24 07:43 06/21/24 07:43 06/21/24 10:26
I&O
06/20/24 06/21/24 06/22/24
06:59 06:59 06:59
Intake Total 1000 / 1000
Balance 1000 / 1000
Physical Exam
-
General: Well Developed and No Apparent Distress
HEENT: Normocephalic, Atraumatic and Moist Mucous Membranes
Respiratory: Rales and Rhonchi
Cardiac: Regular Rhythm and S1/S2; Negative Murmur, Rub or Gallop
GI: Soft, Nontender, Nondistended and Normal Bowel Sounds; Negative Organomegaly
Rectal: Deferred by Provider
Musculoskeletal: No Clubbing, No Cyanosis and No Edema
Skin: Negative Rash
Neuro: Other (Lethargic, although opening eyes to voice and following simple commands.)
--- NOTE | 2024-06-21 15:16 | W.PN.NEPH.PH ---
Today's Communication / Plan
-
replace k and increase D5W
Assessment/Plan
-
Assessment
Acute anemia
Iron deficiency
Acute kidney injury
LEIA with CKD 3 cr 1.7-1.8
COPD
prostate cancer
Plan
LEIA-suspect in setting of severe anemia
cr improving to 2., UOP not measured with incontinence, follow pVR
noted events today suspected DT started on Phenobarbital
stable resp status on 3lit O2, echo ordered
worsening hypernatremia-increase D5W to 100cc/hr, FW deficit 3.7lit
replace k with IVF
Hb stable post pRBC, EGD hold with AMS
BP stable, holding ARB, other meds on hold with AMS
stable met acidosis
[facility] records noted cr seem baseline 1.7-1.8, last lab 11/2023
d/w family and nursing
d/w primary
-
-
Date of Service: June 21, 2024
CC / HPI / ROS
-
Chief Complaint:
LEIA
History of Present Illness:
cr better at 2., k low 3.3
sodium up 155
BP stable
Altered still but more awake per family
Review of Systems:
can not get history since sedated
no fever, remains NPO
Labs
-
Labs:
WBC 9.5 10^3/uL (4.8-10.8) 06/21/24 09:24
RBC 3.41 10^6/uL (4.70-6.10) L 06/21/24 09:24
Hgb 10.1 g/dL (13.0-18.0) L 06/21/24 09:24
Hct 29.9 % (39.0-52.0) L 06/21/24 09:24
Plt Count 370 10^3/uL (130-400) 06/21/24 09:24
eGFR 34.16 06/21/24 09:24
Uur-U-Pthgwkcdfpq Pept 1900 pg/ml 06/19/24 04:19
Albumin 3.4 g/dl (3.5-5.0) L 06/20/24 11:02
Physical Exam
-
Vital Signs:
Vital Signs
Temp Pulse Resp BP Pulse Ox
97.8 F 82 18 168/76 95
06/21/24 07:43 06/21/24 07:43 06/21/24 07:43 06/21/24 07:43 06/21/24 10:26
Cardiovascular:: Regular rate and rhythm
Lung Excursion:: Normal (decreased BS)
Abdomen:: Nontender and Soft
Extremity Edema:: None: Bilateral:
Mack Catheter: No
[2024-06-21] MEDS: AMPICILLIN 108 MG IV ×2 (15:21→21:51)
[2024-06-21 15:26] VITALS: BP 154/98
[2024-06-21] MEDS: LIPITOR PO (16:50)
--- NOTE | 2024-06-21 17:46 | PTCARENOTE ---
Pt Iv infiltrated on left arm. Arm is oozing/swollen. Limb restriction placed on left arm. Arm is elevated with pillows. Dr. Kennedy made aware via TT at 1746.
[2024-06-21] MEDS: NSS (PRESERVATIVE FREE) 1 ML IV (17:48)
[2024-06-21 18:21] LABS: Blood Urea Nitrogen 27 mg/dl (9-20); Calcium 8.5 mg/dl (8.4-10.2); Carbon Dioxide 26 mmol/L (22-30); Chloride 117 mmol/L (98-107); Estimated Creatinine Clearance 28 ml/min; Glucose 117 mg/dl (70-99); Potassium 3.1 mmol/L (3.5-5.1); Sodium 154 mmol/L (135-145); eGFR 36.33
[2024-06-21 23:35] VITALS: BP 156/70
[2024-06-22 00:21] LABS: Haptoglobin 197 mg/dL (30-200)
[2024-06-22] MEDS: D5W with KCL 20 MEQ 1000 IV (01:44)
[2024-06-22] MEDS: AMPICILLIN 108 MG IV ×2 (06:25→16:04)
[2024-06-22 07:24] LABS: % Basophils 0.2 % (0-2); % Eosinophils 1.7 % (0-6); % Immature Granulocytes 0.5 % (0-0.5); % Lymphocytes 5.1 % (20.5-51.1); % Monocytes 9.1 % (1.7-9.3); % Neutrophils 83.4 % (42.2-75.2); Absolute Eosinophils 0.2 10^3/uL (0-0.7); Absolute Immature Granulocytes 0.1 10^3/uL (0-0.05); Absolute Lymphocytes 0.6 10^3/uL (1.2-3.4); Absolute Monocytes 1.1 10^3/uL (0.1-0.6); Hematocrit 31.8 % (39.0-52.0); Hemoglobin 10.5 g/dL (13.0-18.0); Mean Corpuscular Hgb 28.8 pg (27.0-31.0); Mean Corpuscular Volume 87.4 fL (80.0-94.0); Mean Platelet Volume 9.7 fL (7.4-10.4); Nucleated Red Blood Cells % 0 % (-); Platelet Count 427 10^3/uL (130-400); Red Blood Cell Count 3.64 10^6/uL (4.70-6.10); Red Cell Dist. Width 16.2 % (11.5-14.5); White Blood Cell Count 12.1 10^3/uL (4.8-10.8)
[2024-06-22 07:43] LABS: ALT (SGPT) 19 U/L (0-50); AST (SGOT) 37 U/L (17-59); Alkaline Phosphatase 103 U/L (38-126); Blood Urea Nitrogen 20 mg/dl (9-20); Calcium 8.6 mg/dl (8.4-10.2); Carbon Dioxide 26 mmol/L (22-30); Chloride 116 mmol/L (98-107); Estimated Creatinine Clearance 31 ml/min; Glucose 134 mg/dl (70-99); Potassium 3.3 mmol/L (3.5-5.1); Sodium 153 mmol/L (135-145); Total Bilirubin 0.9 mg/dl (0.2-1.3); Total Protein 5.6 g/dl (6.3-8.2); eGFR 41.52
[2024-06-22 08:00] VITALS: BP 113/60
[2024-06-22] MEDS: COREG PO ×2 (08:44→20:58)
[2024-06-22] MEDS: OSCAL CAL 500 PO (08:45)
[2024-06-22] MEDS: NORVASC PO (08:45)
[2024-06-22] MEDS: FOLVITE PO (08:45)
--- NOTE | 2024-06-22 10:15 | PTOTSP ---
Speech Language Pathology
Pt seen for clinical bedside swallow evaluation. Pt drowsy with periods of alertness. P.O. trials of puree and thin liquids via pipetted straw provided. Unable to suck from straw, but actively accepted from pipetted straw. Prolonged bolus
formation and A-P transit with puree. Oral residue noted, but pt was able to clear this with cued secondary swallow. Frequently falling asleep during evaluation, including when P.O. in oral cavity. No overt signs of aspiration with minimal
consistencies trialed.
Do not suspect a true dysphagia. Pt is at risk for aspiration given mentation and decreased alertness.
Recommend:
(1) IDDSI Level 4 (Puree) and Thin Liquids
(2) Aspiration precautions: feed only when alert and actively accepting, ensure oral cavity clear post swallow and verbally cue pt to swallow again if residue noted, oral suctioning post meals, can provide liquids via pipetted straw as long as pt
actively accepting
(3) Meds crushed in puree
(4) PUSHCART PEDDLER to continue to follow
[2024-06-22] MEDS: PROTONIX IV 40 MG IV ×2 (10:41→22:38)
[2024-06-22] MEDS: NSS (PRESERVATIVE FREE) 10 ML IV ×2 (10:41→22:37)
[2024-06-22] MEDS: STERILE WATER FOR INJECTION IV (10:55)
[2024-06-22] MEDS: LUMINAL PO ×2 (12:24→23:00)
--- NOTE | 2024-06-22 12:55 | W.PN.NEPH.PH ---
Today's Communication / Plan
-
IVF
Assessment/Plan
-
Assessment
Acute anemia
Iron deficiency
Acute kidney injury
LEIA with CKD 3 cr 1.7-1.8
COPD
prostate cancer
Plan
follow BMP
replete K IV
hypotonic IVF, increase rate
continue po attempts, may nee NGT if no progress
d/w family
-
-
Date of Service: June 22, 2024
CC / HPI / ROS
-
Chief Complaint:
LEIA
History of Present Illness:
cr better at 1.7
k low 3.3
sodium down to 153
BP stable
awake, answers some questions
family has fed him a little
on phenobarbital for ethanol withdrawal
Review of Systems:
no CP/SOB
Labs
-
Labs:
WBC 12.1 10^3/uL (4.8-10.8) H 06/22/24 06:42
RBC 3.64 10^6/uL (4.70-6.10) L 06/22/24 06:42
Hgb 10.5 g/dL (13.0-18.0) L 06/22/24 06:42
Hct 31.8 % (39.0-52.0) L 06/22/24 06:42
Plt Count 427 10^3/uL (130-400) H 06/22/24 06:42
Sodium 153 mmol/L (135-145) H 06/22/24 06:42
Potassium 3.3 mmol/L (3.5-5.1) L 06/22/24 06:42
Chloride 116 mmol/L (98-107) H 06/22/24 06:42
Carbon Dioxide 26 mmol/L (22-30) 06/22/24 06:42
BUN 20 mg/dl (9-20) 06/22/24 06:42
Creatinine 1.7 mg/dL (0.7-1.3) H 06/22/24 06:42
eGFR 41.52 06/22/24 06:42
Glucose 134 mg/dl (70-99) H 06/22/24 06:42
Calcium 8.6 mg/dl (8.4-10.2) 06/22/24 06:42
Ptf-O-Zjloyuxqjrm Pept 1900 pg/ml 06/19/24 04:19
Albumin 3.0 g/dl (3.5-5.0) L 06/22/24 06:42
Physical Exam
-
Vital Signs:
Vital Signs
Temp Pulse Resp BP Pulse Ox
98.1 F 93 16 113/60 100
06/22/24 08:00 06/22/24 08:00 06/22/24 08:00 06/22/24 08:00 06/22/24 08:00
Cardiovascular:: Regular rate and rhythm
Respiratory:: Bilateral: Coarse and Bilateral: Rales
Lung Excursion:: Normal
Abdomen:: Nontender and Soft
Bowel Sounds:: Normal
Extremity Edema:: None: Bilateral:
[2024-06-22 14:22] VITALS: BP 147/68; PULSE 84; O2SAT 97
[2024-06-22 14:27] VITALS: BP 147/68; PULSE 82; PULSE 84; O2SAT 97
[2024-06-22] MEDS: D5W 1000 IV (14:28)
[2024-06-22] MEDS: FERRLECIT 110 MG IV (14:28)
--- NOTE | 2024-06-22 14:48 | CM ---
Addendum entered by Shante Patel 06/22/24 15:11:
[employer]are[employer] skilled rehab list given to patients spouse.
She does not think patient will agree to go anywhere for skilled rehab.
Original Note:
Patient seen bedside with spouse.
Patient more alert today.
PT/OT/ST recommending skilled rehab.
Plan:skilled rehab once medically stable.
--- NOTE | 2024-06-22 15:52 | W.PN.HOSP.TC ---
Addendum entered and electronically signed by Kolton Kennedy MD 06/22/24 16:58:
Mild to moderate protein calorie malnutrition.
Original Note:
Today's Communication/Plan
-
Continue management of delirium tremens with phenobarbital and lorazepam.
Aspiration precautions
Continue antibiotics amoxicillin covering aspiration as well as enterococcal bacteriuria.
Continue IV fluids
Follow BMP
Eventually GI workup for severe anemia once mental status improved
Continue PPI
Assessment / Plan
Assessment / Plan
IMPRESSION:
Altered mental status/presentation with confusion.
Concern for alcohol withdrawal/DT
Severe anemia with hemoglobin of 5.
LEIA on CKD
Hypernatremia
Hypokalemia
Acute hypoxic respiratory insufficiency
Elevated pro CHF BNP
Aspiration risk
Abnormal urinalysis with concern for UTI
Other conditions:
Prostate carcinoma.
COPD not on any baseline medications.
Active tobacco smoker.
CKD 3A�B with baseline creatinine 1.7 on 09/15
Nephrolithiasis
Carotid stenosis 2005
PVD 2008
Remote history of CVA on dual antiplatelet therapy.
Essential hypertension.
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
Protein calorie malnutrition with BMI of 19
Alcohol use disorder suspected
PLAN:
Altered mental status, presentation with confusion
Toxic metabolic encephalopathy suspect multifactorial in the patient with severe anemia, acute kidney injury on CKD, developing alcohol withdrawal with DT, possible UTI
Aspiration risk due to above
No focal findings on neurologic exam.
CT scan of the head with no acute abnormalities.
Ammonia within normal limits
Urine drug screen negative
Progressively deteriorating mental status over the last 24-hour on 06/20, patient progressively confused and agitated.
Clinical/historical presentation consistent with delirium tremens
Initiated on MSAS protocol with addition of IV phenobarbital on 06/20.
Overall improved over the last 24 hours with improved agitation. Remains lethargic, although opens eyes and follows simple commands.
Aspiration risk.
Diet has been advanced with recommendation of speech pathology.
If remains with low oral intake due to suppressed mental status, may required NG tube for nutrition and medications.
Acute hypoxic respiratory insufficiency.
Currently on 3 L of nasal cannula oxygen
Aspiration risk.
Elevated pro CHF BNP suspected in settings of large volume blood transfusion given on admission
Echocardiogram with preserved biventricular function.
Repeat chest x-ray on 06/20 findings consistent with increased vascularity/pulmonary edema.
Lasix 20 mg IV given on 06/19, will provide additional dose on 06/20
Continue aspiration precautions
Antibiotics tailoring to cover aspiration pathogens
COPD not on home O2.
Exam and presentation with no evidence of bronchospasm
Continue short acting bronchodilators as needed
Initial concern for UTI, less likely.
Enterococcal bacteriuria
Blood cultures negative to date
Antibiotics consolidated from ceftriaxone/vancomycin to amoxicillin to complete 3 to 5 days of treatment for bacteriuria.
Monitor for urinary retention
Severe anemia, normocytic
Heme positive stool on presentation
Hemodynamically stable with no evidence of acute blood loss
Noted elevated BUN 35/creatinine 2.6, unknown baseline.
Normal LFT, bilirubin, less likely hemolysis.
Patient is on dual antiplatelet therapy for remote CVA, NSAIDs, recent prednisone given as a part of treatment for prostate carcinoma.
High risk and suspect upper GI source with slow blood loss.
History of colon resection for complicated diverticulitis with colostomy reversal, reports recent colonoscopy in outside institution with no abnormalities.
Status post transfusion of PRBC 4 units 06/18 - 06/19.
Follow hemoglobin.
Hold DAPT, avoid NSAIDs, currently not on steroids.
IV PPI/Protonix twice daily.
May require inpatient workup including endoscopy.
Iron levels consistent with mixed picture of iron deficiency and anemia of chronic disease
EPO at 277
Gastroenterology consultation. May need upper endoscopy while inpatient.
LEIA on CKD
Hypernatremia
Hypokalemia
Low urine sodium suggesting prerenal stimulating likely anemia
Suspect CKD stage IIIa-b with baseline creatinine at 1.7 on 09/15
Continue hypotonic solution
Replete potassium
Avoid hypotension
Hold valsartan
Bladder scan for retention
Essential hypertension
Continue Norvasc, hold losartan as above.
Prostate carcinoma locally advanced
Recent beads implantation.
Recently on Zytiga and prednisone.
Reports no distant metastatic disease.
Plan for radiation therapy
Primary oncologist at [facility]
Will obtain medical records.
Bladder scan for retention.
DVT prophylaxis/mechanical.
Full code.
Anticipated Discharge: > 48 hours
Subjective/Interval History
-
Date of Service: June 22, 2024
Objective Data
-
Labs:
Laboratory Results
06/22/24
06:42
WBC 12.1 H
Hgb 10.5 L
Hct 31.8 L
Plt Count 427 H
Sodium 153 H
Potassium 3.3 L
Chloride 116 H
Carbon Dioxide 26
BUN 20
Creatinine 1.7 H
Glucose 134 H
Calcium 8.6
Total Bilirubin 0.9
AST 37
ALT 19
Alkaline Phosphatase 103
Vital Signs:
Vital Signs
Temp Pulse Resp BP Pulse Ox
98.1 F 93 16 113/60 100
06/22/24 08:00 06/22/24 08:00 06/22/24 08:00 06/22/24 08:00 06/22/24 08:00
I&O
06/21/24 06/22/24 06/23/24
06:59 06:59 06:59
Intake Total 0 / 0 1228 / 1228
Output Total 600 / 600
Balance -600 / -600 1228 / 1228
Physical Exam
-
General: Well Developed and No Apparent Distress
HEENT: Normocephalic, Atraumatic and Moist Mucous Membranes
Respiratory: Rales and Rhonchi
Cardiac: Regular Rhythm and S1/S2; Negative Murmur, Rub or Gallop
GI: Soft, Nontender, Nondistended and Normal Bowel Sounds; Negative Organomegaly
Rectal: Deferred by Provider
Musculoskeletal: No Clubbing, No Cyanosis and No Edema
Skin: Negative Rash
Neuro: Other (Lethargic, although opening eyes to voice and following simple commands.)
[2024-06-22] MEDS: DUONEB 3 ML INH ×2 (16:00→20:39)
[2024-06-22] MEDS: LUMINAL 64.8 MG PO (16:04)
[2024-06-22] MEDS: LIPITOR 20 MG PO (16:04)
[2024-06-22] MEDS: KCL 270 MEQ IV (17:30)
[2024-06-22] MEDS: ATIVAN 1 MG PO (18:39)
[2024-06-22 23:52] VITALS: BP 139/84
[2024-06-23] MEDS: AMPICILLIN 108 MG IV ×4 (00:07→22:32)
[2024-06-23 01:29] LABS: Albumin 2.83 g/dL (3.75-5.01); Alpha 1 Globulin 0.58 g/dL (0.19-0.46); Alpha 2 Globulin 0.88 g/dL (0.48-1.05); Free Kappa Light Chains,Quant 54.74 mg/L (3.30-19.40); Free Lambda Light Chains,Quant 64.98 mg/L (5.71-26.30); IgA 208 mg/dL (68-408); IgG 489 mg/dL (768-1632); IgM 109 mg/dL (35-263); Immunofixation Electrophoresis IFE Done; Kappa/Lambda Fr Light Ratio 0.84 (0.26-1.65); Total Protein-Electrophoresis 5.7 g/dL (6.3-8.2)
[2024-06-23] MEDS: TYLENOL/FEVERALL 650 MG RECTAL (01:38)
[2024-06-23] MEDS: KCL 270 MEQ IV (01:43)
[2024-06-23] MEDS: DUONEB 3 ML INH ×3 (04:53→23:30)
[2024-06-23 06:02] LABS: % Basophils 0.2 % (0-2); % Immature Granulocytes 0.6 % (0-0.5); % Lymphocytes 5.7 % (20.5-51.1); % Monocytes 10.9 % (1.7-9.3); % Neutrophils 81.6 % (42.2-75.2); Absolute Eosinophils 0.1 10^3/uL (0-0.7); Absolute Immature Granulocytes 0.1 10^3/uL (0-0.05); Absolute Lymphocytes 0.7 10^3/uL (1.2-3.4); Absolute Monocytes 1.3 10^3/uL (0.1-0.6); Absolute Neutrophils 9.9 10^3/uL (1.4-6.5); Hematocrit 29.8 % (39.0-52.0); Hemoglobin 9.7 g/dL (13.0-18.0); Mean Corp Hgb Conc. 32.6 g/dL (33.0-37.0); Mean Corpuscular Hgb 29.4 pg (27.0-31.0); Mean Corpuscular Volume 90.3 fL (80.0-94.0); Nucleated Red Blood Cells % 0 % (-); Platelet Count 346 10^3/uL (130-400); Red Cell Dist. Width 15.9 % (11.5-14.5); White Blood Cell Count 12.1 10^3/uL (4.8-10.8)
[2024-06-23 06:24] LABS: Blood Urea Nitrogen 15 mg/dl (9-20); Calcium 8.1 mg/dl (8.4-10.2); Carbon Dioxide 27 mmol/L (22-30); Chloride 115 mmol/L (98-107); Estimated Creatinine Clearance 33 ml/min; Glucose 96 mg/dl (70-99); Potassium 3.8 mmol/L (3.5-5.1); Sodium 151 mmol/L (135-145); eGFR 44.65
[2024-06-23 07:46] VITALS: BP 123/68
--- NOTE | 2024-06-23 09:14 | W.PN.NEPH.PH ---
Today's Communication / Plan
-
Increase IV fluid
Assessment/Plan
-
Assessment
Acute anemia
Iron deficiency
Acute kidney injury
LEIA with CKD 3 cr 1.7-1.8
COPD
prostate cancer
Plan
follow BMP
replete K IV as needed
hypotonic IVF, increase rate to 150 cc/h
continue po attempts, may need NGT if no progress
-
-
Date of Service: June 23, 2024
CC / HPI / ROS
-
Chief Complaint:
LEIA
History of Present Illness:
cr better at 1.6
k up to 3.8
sodium down to 151
BP stable
awake, answers some questions
on phenobarbital for ethanol withdrawal
Review of Systems:
no CP/SOB
Labs
-
Labs:
WBC 12.1 10^3/uL (4.8-10.8) H 06/23/24 05:30
RBC 3.30 10^6/uL (4.70-6.10) L 06/23/24 05:30
Hgb 9.7 g/dL (13.0-18.0) L 06/23/24 05:30
Hct 29.8 % (39.0-52.0) L 06/23/24 05:30
Plt Count 346 10^3/uL (130-400) 06/23/24 05:30
Sodium 151 mmol/L (135-145) H 06/23/24 05:30
Potassium 3.8 mmol/L (3.5-5.1) 06/23/24 05:30
Chloride 115 mmol/L (98-107) H 06/23/24 05:30
Carbon Dioxide 27 mmol/L (22-30) 06/23/24 05:30
BUN 15 mg/dl (9-20) 06/23/24 05:30
Creatinine 1.6 mg/dL (0.7-1.3) H 06/23/24 05:30
eGFR 44.65 06/23/24 05:30
Glucose 96 mg/dl (70-99) 06/23/24 05:30
Calcium 8.1 mg/dl (8.4-10.2) L 06/23/24 05:30
Pqs-K-Ieykagvuckh Pept 1900 pg/ml 06/19/24 04:19
Albumin 3.0 g/dl (3.5-5.0) L 06/22/24 06:42
Physical Exam
-
Vital Signs:
Vital Signs
Temp Pulse Resp BP Pulse Ox
97.7 F 81 16 123/68 97
06/23/24 07:46 06/23/24 07:46 06/23/24 07:46 06/23/24 07:46 06/23/24 07:46
Cardiovascular:: Regular rate and rhythm
Respiratory:: Bilateral: Coarse
Lung Excursion:: Normal
Abdomen:: Nontender and Soft
Bowel Sounds:: Normal
Extremity Edema:: None: Bilateral:
[2024-06-23] MEDS: PROTONIX IV 40 MG IV ×2 (09:35→21:31)
[2024-06-23] MEDS: NSS (PRESERVATIVE FREE) 10 ML IV ×2 (09:35→21:31)
[2024-06-23] MEDS: COREG 6.25 MG PO ×2 (09:36→20:16)
[2024-06-23] MEDS: FOLVITE 0.4 MG PO (09:37)
[2024-06-23] MEDS: LUMINAL 64.8 MG PO ×3 (09:37→21:31)
[2024-06-23] MEDS: NORVASC 10 MG PO (09:37)
[2024-06-23] MEDS: OSCAL CAL 500 500 MG PO (09:37)
[2024-06-23] MEDS: D5W 1000 IV ×3 (09:39→19:52)
[2024-06-23] MEDS: D5W IV ×2 (09:40)
[2024-06-23] MEDS: STERILE WATER FOR INJECTION IV (10:22)
--- NOTE | 2024-06-23 11:54 | W.PN.HOSP.TC ---
Today's Communication/Plan
-
very debilitated
will likely need SNF
Assessment / Plan
Assessment / Plan
IMPRESSION:
Altered mental status/presentation with confusion.
Concern for alcohol withdrawal/DT
Severe anemia with hemoglobin of 5.
LEIA on CKD
Hypernatremia
Hypokalemia
Acute hypoxic respiratory insufficiency
Elevated pro CHF BNP
Aspiration risk
Abnormal urinalysis with concern for UTI
Other conditions:
Prostate carcinoma.
COPD not on any baseline medications.
Active tobacco smoker.
CKD 3A�B with baseline creatinine 1.7 on 09/15
Nephrolithiasis
Carotid stenosis 2005
PVD 2008
Remote history of CVA on dual antiplatelet therapy.
Essential hypertension.
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
Protein calorie malnutrition with BMI of 19
Alcohol use disorder suspected
PLAN:
06/23/24 -- has pureed diet per speech--pt very deconditioned and will likely need SNF at d/c--cont MSAS and phenobarb treatments
Altered mental status, presentation with confusion
Toxic metabolic encephalopathy suspect multifactorial in the patient with severe anemia, acute kidney injury on CKD, developing alcohol withdrawal with DT, possible UTI
Aspiration risk due to above
No focal findings on neurologic exam.
CT scan of the head with no acute abnormalities.
Ammonia within normal limits
Urine drug screen negative
Progressively deteriorating mental status over the last 24-hour on 06/20, patient progressively confused and agitated.
Clinical/historical presentation consistent with delirium tremens
Initiated on MSAS protocol with addition of IV phenobarbital on 06/20.
Overall improved over the last 24 hours with improved agitation. Remains lethargic, although opens eyes and follows simple commands.
Aspiration risk.
Diet has been advanced with recommendation of speech pathology.
If remains with low oral intake due to suppressed mental status, may required NG tube for nutrition and medications.
Acute hypoxic respiratory insufficiency.
Currently on 3 L of nasal cannula oxygen--family feeding him but O2 on chest instead of in his nose
Aspiration risk.
Elevated pro CHF BNP suspected in settings of large volume blood transfusion given on admission
Echocardiogram with preserved biventricular function.
Repeat chest x-ray on 06/20 findings consistent with increased vascularity/pulmonary edema.
Lasix 20 mg IV given on 06/19, will provide additional dose on 06/20
Continue aspiration precautions
Antibiotics tailoring to cover aspiration pathogens
COPD not on home O2.
Exam and presentation with no evidence of bronchospasm
Continue short acting bronchodilators as needed
Initial concern for UTI, less likely.
Enterococcal bacteriuria
Blood cultures negative to date
Antibiotics consolidated from ceftriaxone/vancomycin to amoxicillin to complete 3 to 5 days of treatment for bacteriuria.
Monitor for urinary retention
Severe anemia, normocytic
Heme positive stool on presentation
Hemodynamically stable with no evidence of acute blood loss
Noted elevated BUN 35/creatinine 2.6, unknown baseline.
Normal LFT, bilirubin, less likely hemolysis.
Patient is on dual antiplatelet therapy for remote CVA, NSAIDs, recent prednisone given as a part of treatment for prostate carcinoma.
High risk and suspect upper GI source with slow blood loss.
History of colon resection for complicated diverticulitis with colostomy reversal, reports recent colonoscopy in outside institution with no abnormalities.
Status post transfusion of PRBC 4 units 06/18 - 06/19.
Follow hemoglobin.
Hold DAPT, avoid NSAIDs, currently not on steroids.
IV PPI/Protonix twice daily.
May require inpatient workup including endoscopy.
Iron levels consistent with mixed picture of iron deficiency and anemia of chronic disease
EPO at 277
Gastroenterology consultation. May need upper endoscopy while inpatient--signed off--may need to recall as inpt
LEIA on CKD
Hypernatremia--despite IVF, sodium still 151--apprec renal--increasing IVF
Hypokalemia
Low urine sodium suggesting prerenal stimulating likely anemia
Suspect CKD stage IIIa-b with baseline creatinine at 1.7 on 09/15
Continue hypotonic solution
Replete potassium
Avoid hypotension
Hold valsartan
Bladder scan for retention
Essential hypertension
Continue Norvasc, hold losartan as above.
Prostate carcinoma locally advanced
Recent beads implantation.
Recently on Zytiga and prednisone.
Reports no distant metastatic disease.
Plan for radiation therapy
Primary oncologist at [facility]
Will obtain medical records.
Bladder scan for retention.
DVT prophylaxis/mechanical.
Full code.
Anticipated Discharge: > 48 hours
Subjective/Interval History
-
Date of Service: June 23, 2024
family at bedside--pt without specific c/o
Objective Data
-
Labs:
Laboratory Results
06/23/24
05:30
WBC 12.1 H
Hgb 9.7 L
Hct 29.8 L
Plt Count 346
Sodium 151 H
Potassium 3.8
Chloride 115 H
Carbon Dioxide 27
BUN 15
Creatinine 1.6 H
Glucose 96
Calcium 8.1 L
Vital Signs:
max temp for 24 hours
06/22/24
23:52
Temp 98.6 F
Vital Signs
Temp Pulse Resp BP Pulse Ox
97.7 F 81 16 123/68 97
06/23/24 07:46 06/23/24 07:46 06/23/24 07:46 06/23/24 09:36 06/23/24 07:46
I&O
06/22/24 06/23/24 06/24/24
06:59 06:59 06:59
Intake Total 0 / 0 1987
Output Total 600 / 600
Balance -600 / -600 1987
Review of Systems
-
All other systems: Reviewed and negative
Physical Exam
-
General: Well Developed, No Apparent Distress and Appears Chronically Ill
HEENT: Normocephalic, Atraumatic and Oxygen (on his chest--family feeding him)
Respiratory: Wheezes (diffusely)
Cardiac: Regular Rhythm and S1/S2; Negative Murmur
GI: Soft, Nontender, Nondistended and Normal Bowel Sounds
Musculoskeletal: No Clubbing, No Cyanosis and No Edema
Neuro: Awake
Psych: Calm
[2024-06-23] MEDS: FERRLECIT 110 MG IV (15:19)
[2024-06-23 15:53] VITALS: BP 120/65
[2024-06-23] MEDS: LIPITOR 20 MG PO (16:51)
--- NOTE | 2024-06-23 19:49 | PTCARENOTE ---
AM RN reported that family stated pt's right calf was warmer than the left. AM RN notified provider. No new orders were placed. On assessment, pt's left arm, which had an infiltrate on 06/21/24, is still swollen and warm to the touch. Left hand is
swollen. Pillow placed under left arm. Pt removes pillow repeatedly and pillow is placed back under arm each time pt removes it. Notified covering X RAY NURSE of left arm and updated X RAY NURSE of AM RN's report of family reporting right calf warmer than left.
X RAY NURSE assessed pt at bedside. New orders placed. Plan of care ongoing.
[2024-06-23] MEDS: ATIVAN 1 MG PO (20:16)
[2024-06-23 23:26] VITALS: BP 122/69
[2024-06-24] MEDS: TYLENOL/FEVERALL 650 MG RECTAL (01:57)
[2024-06-24] MEDS: D5W 1000 IV (04:30)
[2024-06-24] MEDS: AMPICILLIN 108 MG IV ×3 (06:42→21:15)
[2024-06-24 07:23] VITALS: BP 130/73
[2024-06-24] MEDS: NORVASC 10 MG PO (08:35)
[2024-06-24] MEDS: COREG 6.25 MG PO ×2 (08:35→19:51)
[2024-06-24] MEDS: OSCAL CAL 500 500 MG PO (08:35)
[2024-06-24] MEDS: LUMINAL 32.4 MG PO ×3 (08:37→21:15)
[2024-06-24] MEDS: PROTONIX IV 40 MG IV ×2 (08:37→19:51)
[2024-06-24] MEDS: FOLVITE 0.4 MG PO (08:37)
[2024-06-24] MEDS: NSS (PRESERVATIVE FREE) 10 ML IV ×2 (08:38→19:51)
--- NOTE | 2024-06-24 10:16 | W.PN.HOSP.TC ---
Today's Communication/Plan
-
SNF
Assessment / Plan
Assessment / Plan
IMPRESSION:
Altered mental status/presentation with confusion.
Concern for alcohol withdrawal/DT
Severe anemia with hemoglobin of 5.
LEIA on CKD
Hypernatremia
Hypokalemia
Acute hypoxic respiratory insufficiency
Elevated pro CHF BNP
Aspiration risk
Abnormal urinalysis with concern for UTI
Other conditions:
Prostate carcinoma.
COPD not on any baseline medications.
Active tobacco smoker.
CKD 3A�B with baseline creatinine 1.7 on 09/15
Nephrolithiasis
Carotid stenosis 2005
PVD 2008
Remote history of CVA on dual antiplatelet therapy.
Essential hypertension.
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
Protein calorie malnutrition with BMI of 19
Alcohol use disorder suspected
PLAN:
06/24/24--deconditioned--to me, not at baseline but don't really know--MSAS/phenobarb
06/23/24 -- has pureed diet per speech--pt very deconditioned and will likely need SNF at d/c--cont MSAS and phenobarb treatments
Altered mental status, presentation with confusion
Toxic metabolic encephalopathy suspect multifactorial in the patient with severe anemia, acute kidney injury on CKD, developing alcohol withdrawal with DT, possible UTI
Aspiration risk due to above
No focal findings on neurologic exam.
CT scan of the head with no acute abnormalities.
Ammonia within normal limits
Urine drug screen negative
Progressively deteriorating mental status over the last 24-hour on 06/20, patient progressively confused and agitated.
Clinical/historical presentation consistent with delirium tremens
Initiated on MSAS protocol with addition of IV phenobarbital on 06/20.
Overall improved over the last 24 hours with improved agitation. Remains lethargic, although opens eyes and follows simple commands.
Aspiration risk.
Diet has been advanced with recommendation of speech pathology.
If remains with low oral intake due to suppressed mental status, may required NG tube for nutrition and medications.
Acute hypoxic respiratory insufficiency.
Currently on 3 L of nasal cannula oxygen--family feeding him but O2 on chest instead of in his nose
Aspiration risk.
Elevated pro CHF BNP suspected in settings of large volume blood transfusion given on admission
Echocardiogram with preserved biventricular function.
Repeat chest x-ray on 06/20 findings consistent with increased vascularity/pulmonary edema.
Lasix 20 mg IV given on 06/19, will provide additional dose on 06/20
Continue aspiration precautions
Antibiotics tailoring to cover aspiration pathogens
COPD not on home O2.
Exam and presentation with no evidence of bronchospasm
Continue short acting bronchodilators as needed
Initial concern for UTI, less likely.
Enterococcal bacteriuria
Blood cultures negative to date
Antibiotics consolidated from ceftriaxone/vancomycin to amoxicillin to complete 3 to 5 days of treatment for bacteriuria.
Monitor for urinary retention
Severe anemia, normocytic
Heme positive stool on presentation
Hemodynamically stable with no evidence of acute blood loss
Noted elevated BUN 35/creatinine 2.6, unknown baseline.
Normal LFT, bilirubin, less likely hemolysis.
Patient is on dual antiplatelet therapy for remote CVA, NSAIDs, recent prednisone given as a part of treatment for prostate carcinoma.
High risk and suspect upper GI source with slow blood loss.
History of colon resection for complicated diverticulitis with colostomy reversal, reports recent colonoscopy in outside institution with no abnormalities.
Status post transfusion of PRBC 4 units 06/18 - 06/19.
Follow hemoglobin.
Hold DAPT, avoid NSAIDs, currently not on steroids.
IV PPI/Protonix twice daily.
May require inpatient workup including endoscopy.
Iron levels consistent with mixed picture of iron deficiency and anemia of chronic disease
EPO at 277
Gastroenterology consultation. May need upper endoscopy while inpatient--signed off--may need to recall as inpt
LEIA on CKD
Hypernatremia--despite IVF, sodium still 151--apprec renal--increasing IVF--labs pendoing this AM 06/24/24--for now will renew IVF
Hypokalemia
Low urine sodium suggesting prerenal stimulating likely anemia
Suspect CKD stage IIIa-b with baseline creatinine at 1.7 on 09/15
Continue hypotonic solution
Replete potassium
Avoid hypotension
Hold valsartan
Bladder scan for retention
Essential hypertension
Continue Norvasc, hold losartan as above.
Prostate carcinoma locally advanced
Recent beads implantation.
Recently on Zytiga and prednisone.
Reports no distant metastatic disease.
Plan for radiation therapy
Primary oncologist at [facility]
Will obtain medical records.
Bladder scan for retention.
DVT prophylaxis/mechanical.
Full code.
Anticipated Discharge: > 48 hours
Subjective/Interval History
-
Date of Service: June 24, 2024
pt taking his O2 off
Objective Data
-
Labs:
Laboratory Results
06/24/24
06:00
WBC Pending
Hgb Pending
Hct Pending
Plt Count Pending
Sodium Pending
Potassium Pending
Chloride Pending
Carbon Dioxide Pending
BUN Pending
Creatinine Pending
Glucose Pending
Calcium Pending
Vital Signs:
max temp for 24 hours
06/22/24
23:52
Temp 98.6 F
Vital Signs
Temp Pulse Resp BP Pulse Ox
97.5 F 76 16 130/73 98
06/24/24 07:23 06/24/24 07:23 06/24/24 07:23 06/24/24 07:23 06/24/24 07:23
I&O
06/23/24 06/24/24 06/25/24
06:59 06:59 06:59
Intake Total 1987 183 / 183
Output Total 150 / 150
Balance 1987 33 / 33
Review of Systems
-
All other systems: Reviewed and negative
Musculoskeletal: Reports Other (hip pain)
Physical Exam
-
General: Well Developed, No Apparent Distress and Appears Chronically Ill
HEENT: Normocephalic, Atraumatic and Oxygen
Respiratory: Clear to Auscultation; Negative Wheezes or Rhonchi
Cardiac: Regular Rhythm and S1/S2; Negative Murmur
GI: Soft, Nontender, Nondistended and Normal Bowel Sounds
Musculoskeletal: No Clubbing, No Cyanosis and No Edema
Neuro: Awake and Alert
[2024-06-24 10:42] LABS: Hematocrit 25.9 % (39.0-52.0); Hemoglobin 8.7 g/dL (13.0-18.0); Mean Corp Hgb Conc. 33.6 g/dL (33.0-37.0); Mean Corpuscular Hgb 28.4 pg (27.0-31.0); Mean Corpuscular Volume 84.6 fL (80.0-94.0); Platelet Count 305 10^3/uL (130-400); Red Blood Cell Count 3.06 10^6/uL (4.70-6.10); Red Cell Dist. Width 15.5 % (11.5-14.5); White Blood Cell Count 13.1 10^3/uL (4.8-10.8)
[2024-06-24 10:54] LABS: Blood Urea Nitrogen 14 mg/dl (9-20); Calcium 7.5 mg/dl (8.4-10.2); Carbon Dioxide 26 mmol/L (22-30); Chloride 107 mmol/L (98-107); Estimated Creatinine Clearance 38 ml/min; Glucose 83 mg/dl (70-99); Magnesium 1.6 mg/dl (1.6-2.3); Potassium 3.2 mmol/L (3.5-5.1); Sodium 141 mmol/L (135-145); eGFR 52.41
[2024-06-24] MEDS: TYLENOL 650 MG PO ×2 (11:49→17:09)
[2024-06-24] MEDS: ATIVAN 1 MG PO (11:49)
--- NOTE | 2024-06-24 12:40 | W.PN.NEPH.PH ---
Today's Communication / Plan
-
DC IV fluid
Maintain increased p.o. fluid intake
Assessment/Plan
-
Assessment
Acute anemia
Iron deficiency
Acute kidney injury
LEIA with CKD 3 cr 1.7-1.8
COPD
prostate cancer
Plan
follow BMP
replete K IV as needed
DC further IV fluids as sodium corrected to 141
Family states the patient is now drinking
Creatinine continues to improve
-
-
Date of Service: June 24, 2024
CC / HPI / ROS
-
Chief Complaint:
LEIA
History of Present Illness:
cr better at 1.4
k at 3.2
sodium down to 141
BP stable
awake, answers some questions
on phenobarbital for ethanol withdrawal
Review of Systems:
no CP/SOB
Incontinent
Labs
-
Labs:
WBC 13.1 10^3/uL (4.8-10.8) H 06/24/24 10:25
RBC 3.06 10^6/uL (4.70-6.10) L 06/24/24 10:25
Hgb 8.7 g/dL (13.0-18.0) L 06/24/24 10:25
Hct 25.9 % (39.0-52.0) L 06/24/24 10:25
Plt Count 305 10^3/uL (130-400) 06/24/24 10:25
Sodium 141 mmol/L (135-145) D 06/24/24 10:25
Potassium 3.2 mmol/L (3.5-5.1) L 06/24/24 10:25
Chloride 107 mmol/L (98-107) 06/24/24 10:25
Carbon Dioxide 26 mmol/L (22-30) 06/24/24 10:25
BUN 14 mg/dl (9-20) 06/24/24 10:25
Creatinine 1.4 mg/dL (0.7-1.3) H 06/24/24 10:25
eGFR 52.41 06/24/24 10:25
Glucose 83 mg/dl (70-99) 06/24/24 10:25
Calcium 7.5 mg/dl (8.4-10.2) L 06/24/24 10:25
Gbr-I-Dkvcemjcavx Pept 1900 pg/ml 06/19/24 04:19
Albumin 3.0 g/dl (3.5-5.0) L 06/22/24 06:42
Physical Exam
-
Vital Signs:
Vital Signs
Temp Pulse Resp BP Pulse Ox
97.9 F 81 16 130/73 98
06/24/24 11:44 06/24/24 11:44 06/24/24 07:23 06/24/24 07:23 06/24/24 07:23
Cardiovascular:: Regular rate and rhythm
Respiratory:: Bilateral: Coarse
Lung Excursion:: Normal
Abdomen:: Nontender and Soft
Bowel Sounds:: Normal
Extremity Edema:: None: Bilateral:
[2024-06-24 15:05] VITALS: BP 115/61
[2024-06-24] MEDS: FERRLECIT 110 MG IV (16:35)
[2024-06-24] MEDS: LIPITOR 20 MG PO (16:43)
[2024-06-24] MEDS: D5W IV (17:09)
[2024-06-24 23:13] VITALS: BP 102/56
[2024-06-25 05:34] LABS: Hematocrit 26.3 % (39.0-52.0); Hemoglobin 8.6 g/dL (13.0-18.0); Mean Corp Hgb Conc. 32.7 g/dL (33.0-37.0); Mean Corpuscular Hgb 29.3 pg (27.0-31.0); Mean Corpuscular Volume 89.5 fL (80.0-94.0); Mean Platelet Volume 10.3 fL (7.4-10.4); Platelet Count 295 10^3/uL (130-400); Red Blood Cell Count 2.94 10^6/uL (4.70-6.10); Red Cell Dist. Width 15.1 % (11.5-14.5); White Blood Cell Count 11.1 10^3/uL (4.8-10.8)
[2024-06-25 05:54] LABS: Blood Urea Nitrogen 17 mg/dl (9-20); Calcium 7.5 mg/dl (8.4-10.2); Carbon Dioxide 26 mmol/L (22-30); Chloride 107 mmol/L (98-107); Estimated Creatinine Clearance 33 ml/min; Glucose 70 mg/dl (70-99); Magnesium 1.8 mg/dl (1.6-2.3); Potassium 3.1 mmol/L (3.5-5.1); Sodium 143 mmol/L (135-145); eGFR 44.65
[2024-06-25] MEDS: AMPICILLIN 108 MG IV ×3 (06:06→21:18)
[2024-06-25 07:30] VITALS: BP 98/72
[2024-06-25] MEDS: TYLENOL 650 MG PO ×4 (08:42→23:38)
[2024-06-25] MEDS: OSCAL CAL 500 500 MG PO (08:50)
[2024-06-25] MEDS: NORVASC 10 MG PO (08:50)
[2024-06-25] MEDS: PROTONIX IV 40 MG IV (08:51)
[2024-06-25] MEDS: COREG 6.25 MG PO ×2 (08:51→20:37)
[2024-06-25] MEDS: NSS (PRESERVATIVE FREE) 10 ML IV (08:52)
[2024-06-25] MEDS: FLUSH (NSS) 2 FLUSH IV (08:54)
[2024-06-25] MEDS: LUMINAL 32.4 MG PO ×3 (09:00→21:18)
[2024-06-25] MEDS: FOLVITE 0.4 MG PO (09:00)
--- NOTE | 2024-06-25 12:09 | W.PN.NEPH.PH ---
Today's Communication / Plan
-
K repletion
Holding IV fluids for now
Hopefully patient can maintain free water intake
Assessment/Plan
-
Assessment
Acute anemia
Iron deficiency
Acute kidney injury
LEIA with CKD 3 cr 1.7-1.8
COPD
prostate cancer
Plan
follow BMP
replete K prn
sodiuim at 143
Family states the patient is now drinking
will give hypotonic IVFs if hypernatremia exacerbates
Creatinine at 1.6
-
-
Date of Service: June 25, 2024
CC / HPI / ROS
-
Chief Complaint:
LEIA
History of Present Illness:
cr at 1.6
k at 3.1
sodium down to 143
BP stable
on phenobarbital for ethanol withdrawal
Review of Systems:
no CP/SOB
Incontinent
Profoundly lethargic today
Labs
-
Labs:
WBC 11.1 10^3/uL (4.8-10.8) H 06/25/24 04:43
RBC 2.94 10^6/uL (4.70-6.10) L 06/25/24 04:43
Hgb 8.6 g/dL (13.0-18.0) L 06/25/24 04:43
Hct 26.3 % (39.0-52.0) L 06/25/24 04:43
Plt Count 295 10^3/uL (130-400) 06/25/24 04:43
Sodium 143 mmol/L (135-145) 06/25/24 04:43
Potassium 3.1 mmol/L (3.5-5.1) L 06/25/24 04:43
Chloride 107 mmol/L (98-107) 06/25/24 04:43
Carbon Dioxide 26 mmol/L (22-30) 06/25/24 04:43
BUN 17 mg/dl (9-20) 06/25/24 04:43
Creatinine 1.6 mg/dL (0.7-1.3) H 06/25/24 04:43
eGFR 44.65 06/25/24 04:43
Glucose 70 mg/dl (70-99) 06/25/24 04:43
Calcium 7.5 mg/dl (8.4-10.2) L 06/25/24 04:43
Doo-E-Qyepltvkryn Pept 1900 pg/ml 06/19/24 04:19
Albumin 3.0 g/dl (3.5-5.0) L 06/22/24 06:42
Physical Exam
-
Vital Signs:
Vital Signs
Temp Pulse Resp BP Pulse Ox
97.6 F 74 20 123/69 90
06/25/24 07:30 06/25/24 08:51 06/25/24 07:30 06/25/24 08:51 06/25/24 09:00
Cardiovascular:: Regular rate and rhythm
Respiratory:: Bilateral: Coarse
Lung Excursion:: Normal
Abdomen:: Nontender and Soft
Bowel Sounds:: Normal
Extremity Edema:: None: Bilateral:
--- NOTE | 2024-06-25 12:51 | W.PN.HOSP.TC ---
Today's Communication/Plan
-
Monitor hemoglobin
Resume aspirin
PT/OT
Discharge planning
Assessment / Plan
Assessment / Plan
Gen-somnolent but arousable
HEENT-NC, AT, anicteric, clear oral mm
Neck-supple
CV-reg, no M, +S1/S2
Lungs-clear B/L
Abd-soft, NT, ND
Ext-no edema
Musculoskeletal-no cyanosis, clubbing
Skin-warm and dry
IMPRESSION:
Altered mental status/presentation with confusion.
Concern for alcohol withdrawal/DT
Severe anemia with hemoglobin of 5.
LEIA on CKD
Hypernatremia
Hypokalemia
Acute hypoxic respiratory insufficiency
Elevated pro CHF BNP
Aspiration risk
Abnormal urinalysis with concern for UTI
Other conditions:
Prostate carcinoma.
COPD not on any baseline medications.
Active tobacco smoker.
CKD 3A�B with baseline creatinine 1.7 on 09/15
Nephrolithiasis
Carotid stenosis 2005
PVD 2008
Remote history of CVA on dual antiplatelet therapy.
Essential hypertension.
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
Protein calorie malnutrition with BMI of 19
Alcohol use disorder suspected
PLAN:
Altered mental status, presentation with confusion -overall mental status improving but unclear baseline. Apparently was more awake earlier today and eating breakfast but currently sleeping with family at the bedside.
Toxic metabolic encephalopathy suspect multifactorial in the patient with severe anemia, acute kidney injury on CKD, developing alcohol withdrawal with DT, possible UTI
Aspiration risk due to above
No focal findings on neurologic exam.
CT scan of the head with no acute abnormalities.
Ammonia within normal limits
Urine drug screen negative
Progressively deteriorating mental status over the last 24-hour on 06/20, patient progressively confused and agitated.
Clinical/historical presentation consistent with delirium tremens
Initiated on MSAS protocol with addition of IV phenobarbital on 06/20.
Overall improved over the last 24 hours with improved agitation. Remains lethargic, although opens eyes and follows simple commands.
Aspiration risk.
Diet has been advanced with recommendation of speech pathology.
If remains with low oral intake due to suppressed mental status, may required NG tube for nutrition and medications.
Acute hypoxic respiratory insufficiency.
Currently on 3 L of nasal cannula oxygen--family feeding him but O2 on chest instead of in his nose
Aspiration risk.
Elevated pro CHF BNP suspected in settings of large volume blood transfusion given on admission
Echocardiogram with preserved biventricular function.
Repeat chest x-ray on 06/20 findings consistent with increased vascularity/pulmonary edema.
Lasix 20 mg IV given on 06/19, will provide additional dose on 06/20
Continue aspiration precautions
Antibiotics tailoring to cover aspiration pathogens
COPD not on home O2.
Exam and presentation with no evidence of bronchospasm
Continue short acting bronchodilators as needed
Polymicrobial UTI -complete course of IV ampicillin, 5 days total.
Enterococcal bacteriuria
Blood cultures negative to date
Antibiotics consolidated from ceftriaxone/vancomycin to amoxicillin to complete 3 to 5 days of treatment for bacteriuria.
Monitor for urinary retention
Severe anemia, normocytic -GI bleed suspected and complicated by dual antiplatelet therapy.
Heme positive stool on presentation
Hemodynamically stable with no evidence of acute blood loss
Noted elevated BUN 35/creatinine 2.6, unknown baseline.
Normal LFT, bilirubin, less likely hemolysis.
Patient is on dual antiplatelet therapy for remote CVA, NSAIDs, recent prednisone given as a part of treatment for prostate carcinoma.
High risk and suspect upper GI source with slow blood loss.
History of colon resection for complicated diverticulitis with colostomy reversal, reports recent colonoscopy in outside institution with no abnormalities.
Status post transfusion of PRBC 4 units 06/18 - 06/19.
Hemoglobin 8.6 today, will monitor.
Hold Plavix, avoid NSAIDs, currently not on steroids. Resume aspirin given history of stroke. Spoke with family about the role of dual antiplatelet therapy in the setting of previous stroke. Family states that the stroke was 24 years ago.
Recommend outpatient follow-up with his neurologist to decide on true need for DAPT after discharge.
Protonix twice daily.
May require inpatient workup including endoscopy.
Iron levels consistent with mixed picture of iron deficiency and anemia of chronic disease
EPO at 277
Gastroenterology consultation. GI service signed off. Today I spoke with Dr. Kaplan, and he recommends outpatient GI bleed workup.
LEIA on CKD
Hypernatremia--resolved.
Hypokalemia -continue repletion. Magnesium 1.8.
Low urine sodium suggesting prerenal stimulating likely anemia
Suspect CKD stage IIIa-b with baseline creatinine at 1.7 on 09/15
Continue hypotonic solution
Replete potassium
Avoid hypotension
Hold valsartan
Bladder scan for retention
Acute left upper extremity superficial vein thrombosis -noted on ultrasound, basilic vein. Supportive care. Hold off on anticoagulation given presentation with anemia, heme positive stools. Discussed with family.
Alcohol use disorder -family states he has 3 ounces of gin daily. Completing phenobarbital taper. Currently on alcohol withdrawal protocol. Continue folic acid, thiamine.
Essential hypertension
Continue Norvasc, hold losartan as above.
Prostate carcinoma locally advanced
Recent beads implantation.
Recently on Zytiga and prednisone.
Reports no distant metastatic disease.
Plan for radiation therapy
Primary oncologist at [facility]
Will obtain medical records.
Bladder scan for retention.
DVT prophylaxis/mechanical.
Full code.
Dispo -anticipate SNF on discharge. Hopefully can discharge in the next 24 to 48 hours. Updated and children at the bedside.
Anticipated Discharge: 24 - 48 hours
Subjective/Interval History
-
Date of Service: June 25, 2024
Patient seen and examined. Sleepy but arousable. Family at the bedside. No complaints.
Objective Data
-
Labs:
Laboratory Results
06/25/24
04:43
WBC 11.1 H
Hgb 8.6 L
Hct 26.3 L
Plt Count 295
Sodium 143
Potassium 3.1 L
Chloride 107
Carbon Dioxide 26
BUN 17
Creatinine 1.6 H
Glucose 70
Calcium 7.5 L
Vital Signs:
Vital Signs
Temp Pulse Resp BP Pulse Ox
97.6 F 74 20 123/69 90
06/25/24 07:30 06/25/24 08:51 06/25/24 07:30 06/25/24 08:51 06/25/24 09:00
I&O
06/24/24 06/25/24 06/26/24
06:59 06:59 06:59
Intake Total 183 / 183 350 / 350
Output Total 150 / 150
Balance 33 / 33 350 / 350
Review of Systems
-
History Source: Patient
All other systems: Reviewed and negative
[2024-06-25] MEDS: ASPIR LOW (ENTERIC COATED) 81 MG PO (13:02)
[2024-06-25] MEDS: COLACE 100 MG PO (13:02)
[2024-06-25] MEDS: KCL ELIXIR 40 MEQ PO (13:02)
[2024-06-25] MEDS: MIRALAX 17 GRAMS PO (13:03)
--- NOTE | 2024-06-25 14:40 | W.PN.UPDATE ---
Update Note
Progress Note Update
Requested to re-eval pt re: the need for inpatient endoscopic evaluation. Admitted with anemia and melena. Endo eval held off due to mental status, which has improved. Had colonoscopy at [facility] in 2023. Had been having brown BM and Hgb has been
stable. Would favor OP endo eval at this point. GI will s/o.
[2024-06-25 15:15] VITALS: BP 89/44
[2024-06-25] MEDS: FLUSH (NSS) 1 FLUSH IV (15:45)
[2024-06-25] MEDS: LIPITOR 20 MG PO (16:47)
[2024-06-25] MEDS: VITAMIN B1 100 MG PO (16:48)
[2024-06-25 16:57] VITALS: BP 105/60
[2024-06-25] MEDS: COLACE PO (19:39)
[2024-06-25] MEDS: PROTONIX 40 MG PO (20:37)
[2024-06-25 23:30] VITALS: BP 136/74
[2024-06-26] MEDS: AMPICILLIN 108 MG IV (05:12)
[2024-06-26] MEDS: TYLENOL 650 MG PO ×2 (07:32→16:51)
[2024-06-26 07:49] LABS: Blood Urea Nitrogen 25 mg/dl (9-20); Calcium 7.8 mg/dl (8.4-10.2); Carbon Dioxide 22 mmol/L (22-30); Chloride 110 mmol/L (98-107); Estimated Creatinine Clearance 27 ml/min; Glucose 83 mg/dl (70-99); Potassium 3.7 mmol/L (3.5-5.1); Sodium 143 mmol/L (135-145); eGFR 34.16
[2024-06-26 08:22] LABS: % Basophils 0.5 % (0-2); % Eosinophils 2.9 % (0-6); % Immature Granulocytes 0.4 % (0-0.5); % Lymphocytes 7.9 % (20.5-51.1); % Neutrophils 83.3 % (42.2-75.2); Absolute Basophils 0.1 10^3/uL (0-0.2); Absolute Eosinophils 0.3 10^3/uL (0-0.7); Absolute Lymphocytes 0.7 10^3/uL (1.2-3.4); Absolute Monocytes 0.5 10^3/uL (0.1-0.6); Absolute Neutrophils 7.8 10^3/uL (1.4-6.5); Hematocrit 26.5 % (39.0-52.0); Hemoglobin 8.7 g/dL (13.0-18.0); Mean Corp Hgb Conc. 32.8 g/dL (33.0-37.0); Mean Corpuscular Hgb 28.5 pg (27.0-31.0); Mean Corpuscular Volume 86.9 fL (80.0-94.0); Mean Platelet Volume 10.4 fL (7.4-10.4); Nucleated Red Blood Cells % 0 % (-); Platelet Count 295 10^3/uL (130-400); Red Blood Cell Count 3.05 10^6/uL (4.70-6.10); Red Cell Dist. Width 15.4 % (11.5-14.5); White Blood Cell Count 9.4 10^3/uL (4.8-10.8)
[2024-06-26 08:30] VITALS: BP 120/54
[2024-06-26] MEDS: PROTONIX 40 MG PO ×2 (10:23→21:55)
[2024-06-26] MEDS: ASPIR LOW (ENTERIC COATED) 81 MG PO (10:23)
[2024-06-26] MEDS: KCL ELIXIR 40 MEQ PO (10:23)
[2024-06-26] MEDS: FOLVITE 0.4 MG PO (10:23)
[2024-06-26] MEDS: NORVASC 10 MG PO (10:23)
[2024-06-26] MEDS: VITAMIN B1 100 MG PO (10:23)
[2024-06-26] MEDS: OSCAL CAL 500 500 MG PO (10:23)
[2024-06-26] MEDS: COREG 6.25 MG PO ×2 (10:23→21:55)
[2024-06-26] MEDS: MIRALAX PO (10:24)
[2024-06-26] MEDS: COLACE PO ×2 (10:24→19:10)
--- NOTE | 2024-06-26 10:42 | W.PN.HOSP.TC ---
Today's Communication/Plan
-
Ultram as needed
Out of bed to chair
Discharge planning
Assessment / Plan
Assessment / Plan
Gen-NAD, awake, alert, complaining of hip pain
HEENT-NC, AT, anicteric, clear oral mm
Neck-supple
CV-reg, no M, +S1/S2
Lungs-clear B/L
Abd-soft, NT, ND
Ext-no edema
Musculoskeletal-no cyanosis, clubbing
Skin-warm and dry
IMPRESSION:
Altered mental status/presentation with confusion.
Concern for alcohol withdrawal/DT
Severe anemia with hemoglobin of 5.
LEIA on CKD
Hypernatremia
Hypokalemia
Acute hypoxic respiratory insufficiency
Elevated pro CHF BNP
Aspiration risk
Abnormal urinalysis with concern for UTI
Other conditions:
Prostate carcinoma.
COPD not on any baseline medications.
Active tobacco smoker.
CKD 3A�B with baseline creatinine 1.7 on 09/15
Nephrolithiasis
Carotid stenosis 2005
PVD 2008
Remote history of CVA on dual antiplatelet therapy.
Essential hypertension.
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
Protein calorie malnutrition with BMI of 19
Alcohol use disorder suspected
PLAN:
Altered mental status, presentation with confusion -overall mental status improving but unclear baseline. Apparently was more awake earlier today and eating breakfast but currently sleeping with family at the bedside.
Toxic metabolic encephalopathy suspect multifactorial in the patient with severe anemia, acute kidney injury on CKD, developing alcohol withdrawal with DT, possible UTI
Aspiration risk due to above
No focal findings on neurologic exam.
CT scan of the head with no acute abnormalities.
Ammonia within normal limits
Urine drug screen negative
Progressively deteriorating mental status over the last 24-hour on 06/20, patient progressively confused and agitated.
Clinical/historical presentation consistent with delirium tremens
Initiated on MSAS protocol with addition of IV phenobarbital on 06/20.
Overall improved over the last 24 hours with improved agitation. Remains lethargic, although opens eyes and follows simple commands.
Aspiration risk.
Diet has been advanced with recommendation of speech pathology.
If remains with low oral intake due to suppressed mental status, may required NG tube for nutrition and medications.
Acute hypoxic respiratory insufficiency.
Currently on 3 L of nasal cannula oxygen--family feeding him but O2 on chest instead of in his nose
Aspiration risk.
Elevated pro CHF BNP suspected in settings of large volume blood transfusion given on admission
Echocardiogram with preserved biventricular function.
Repeat chest x-ray on 06/20 findings consistent with increased vascularity/pulmonary edema.
Lasix 20 mg IV given on 06/19, will provide additional dose on 06/20
Continue aspiration precautions
COPD not on home O2.
Exam and presentation with no evidence of bronchospasm
Continue short acting bronchodilators as needed
Polymicrobial UTI -complete course of IV ampicillin, 5 days total, last day today 06/26.
Enterococcal bacteriuria
Blood cultures negative to date
Antibiotics consolidated from ceftriaxone/vancomycin to amoxicillin to complete 3 to 5 days of treatment for bacteriuria.
Monitor for urinary retention
Severe anemia, normocytic -GI bleed suspected and complicated by dual antiplatelet therapy.
Heme positive stool on presentation
Hemodynamically stable with no evidence of acute blood loss
Noted elevated BUN 35/creatinine 2.6, unknown baseline.
Normal LFT, bilirubin, less likely hemolysis.
Patient is on dual antiplatelet therapy for remote CVA, NSAIDs, recent prednisone given as a part of treatment for prostate carcinoma.
High risk and suspect upper GI source with slow blood loss.
History of colon resection for complicated diverticulitis with colostomy reversal, reports recent colonoscopy in outside institution with no abnormalities.
Status post transfusion of PRBC 4 units 06/18 - 06/19.
Hemoglobin stable in the 8 range now.
Hold Plavix, avoid NSAIDs, currently not on steroids. Resume aspirin given history of stroke. Spoke with family about the role of dual antiplatelet therapy in the setting of previous stroke. Family states that the stroke was 24 years ago.
Recommend outpatient follow-up with his neurologist to decide on true need for DAPT after discharge.
Protonix twice daily.
May require inpatient workup including endoscopy.
Iron levels consistent with mixed picture of iron deficiency and anemia of chronic disease
EPO at 277
Gastroenterology consultation. GI service signed off. Today I spoke with Dr. Kaplan, and he recommends outpatient GI bleed workup.
LEIA on CKD
Hypernatremia--resolved.
Hypokalemia -continue repletion. Magnesium 1.8.
Low urine sodium suggesting prerenal stimulating likely anemia
Suspect CKD stage IIIa-b with baseline creatinine at 1.7 on 09/15
Continue hypotonic solution
Replete potassium
Avoid hypotension
Hold valsartan
Bladder scan for retention
Acute left upper extremity superficial vein thrombosis -noted on ultrasound, basilic vein. Supportive care. Hold off on anticoagulation given presentation with anemia, heme positive stools. Discussed with family.
Alcohol use disorder -family states he has 3 ounces of gin daily. Completing phenobarbital taper. Currently on alcohol withdrawal protocol. Continue folic acid, thiamine.
Essential hypertension
Continue Norvasc, hold losartan as above.
Prostate carcinoma locally advanced
Recent beads implantation.
Recently on Zytiga and prednisone.
Reports no distant metastatic disease.
Plan for radiation therapy
Primary oncologist at [facility]
Will obtain medical records.
Bladder scan for retention.
Bilateral hip osteoarthritis -Has bilateral hip replacements according to family. Patient states Tylenol is not helping. Recommend getting out of bed into the chair. Discussed with family and nurse. Avoid NSAIDs given renal insufficiency. Add
low-dose Ultram as needed.
DVT prophylaxis/mechanical.
Full code.
Dispo -medically stable for discharge to SNF. Updated family at the bedside. Case management aware.
Anticipated Discharge: Within 24 hours
Subjective/Interval History
-
Date of Service: June 26, 2024
Patient seen and examined. Complaining of pain in both hips.
Objective Data
-
Labs:
Laboratory Results
06/26/24
07:20
WBC 9.4
Hgb 8.7 L
Hct 26.5 L
Plt Count 295
Sodium 143
Potassium 3.7
Chloride 110 H
Carbon Dioxide 22
BUN 25 H
Creatinine 2.0 H
Glucose 83
Calcium 7.8 L
Vital Signs:
Vital Signs
Temp Pulse Resp BP Pulse Ox
98 F 65 17 120/54 95
06/26/24 08:30 06/26/24 08:30 06/26/24 08:30 06/26/24 08:30 06/26/24 08:30
I&O
06/25/24 06/26/24 06/27/24
06:59 06:59 06:59
Intake Total 350 / 350 216 / 216
Output Total 325 / 325
Balance 350 / 350 -109 / -109
Review of Systems
-
History Source: Patient
All other systems: Reviewed and negative
--- NOTE | 2024-06-26 11:05 | CM ---
Addendum entered by Shante Patel 06/26/24 14:42:
No beds available at 3 facilities chosen, additional 3 referral placed.
Addendum entered by Shante Patel 06/26/24 13:16:
PT/OT recommending skilled rehab
[facility]
Referrals via [facility].
Patient needs to be off medsitter x 24 hours, nursing updated.
Original Note:
Patient seen bedside with family members in room.
Await updated PT/OT notes re disposition.
Patient would prefer home with VN, however will consider SNF if recommended.
Patient has medicare primary.
Plan: skilled vs home with VN
[2024-06-26] MEDS: ULTRAM 25 MG PO ×3 (11:57→23:54)
[2024-06-26 12:27] VITALS: O2SAT 99
[2024-06-26 12:29] VITALS: O2SAT 98
--- NOTE | 2024-06-26 15:04 | W.PN.NEPH.PH ---
Today's Communication / Plan
-
gentle IVF 1/2 NS
Assessment/Plan
-
Assessment
Acute anemia
Iron deficiency
Acute kidney injury
LEIA with CKD 3 cr 1.7-1.8
COPD
prostate cancer
Plan
LEIA-cr slowly increasing to 2 along with azotemia
try gentle IVF 500cc today
encourage po intake
stable sodium at 143
BP stable
d/w and pt
-
-
Date of Service: June 26, 2024
CC / HPI / ROS
-
Chief Complaint:
LEIA
History of Present Illness:
cr up at 2, BUN increasing
k at 3.7normal
sodium stbale 143
BP stable
Review of Systems:
no CP/SOB
thinks eating well
Labs
-
Labs:
WBC 9.4 10^3/uL (4.8-10.8) 06/26/24 07:20
RBC 3.05 10^6/uL (4.70-6.10) L 06/26/24 07:20
Hgb 8.7 g/dL (13.0-18.0) L 06/26/24 07:20
Hct 26.5 % (39.0-52.0) L 06/26/24 07:20
Plt Count 295 10^3/uL (130-400) 06/26/24 07:20
Sodium 143 mmol/L (135-145) 06/26/24 07:20
Potassium 3.7 mmol/L (3.5-5.1) 06/26/24 07:20
Chloride 110 mmol/L (98-107) H 06/26/24 07:20
Carbon Dioxide 22 mmol/L (22-30) 06/26/24 07:20
BUN 25 mg/dl (9-20) H 06/26/24 07:20
Creatinine 2.0 mg/dL (0.7-1.3) H 06/26/24 07:20
eGFR 34.16 06/26/24 07:20
Glucose 83 mg/dl (70-99) 06/26/24 07:20
Calcium 7.8 mg/dl (8.4-10.2) L 06/26/24 07:20
Nri-F-Gzzmaakzpif Pept 1900 pg/ml 06/19/24 04:19
Albumin 3.0 g/dl (3.5-5.0) L 06/22/24 06:42
Physical Exam
-
Vital Signs:
Vital Signs
Temp Pulse Resp BP Pulse Ox
98 F 65 17 120/54 95
06/26/24 08:30 06/26/24 08:30 06/26/24 08:30 06/26/24 08:30 06/26/24 08:30
Cardiovascular:: Regular rate and rhythm
Respiratory:: Bilateral: Coarse
Lung Excursion:: Normal
Abdomen:: Nontender and Soft
Extremity Edema:: None: Bilateral:
Mack Catheter: No
[2024-06-26] MEDS: 0.45%NACL 1000 IV (15:44)
[2024-06-26 16:55] VITALS: BP 100/58
[2024-06-26] MEDS: LIPITOR 20 MG PO (17:35)
[2024-06-26 23:25] VITALS: BP 156/75
[2024-06-27] MEDS: ULTRAM 25 MG PO ×3 (06:25→19:55)
--- NOTE | 2024-06-27 06:29 | PTCARENOTE ---
Pt calling out in pain throughout night, stating 'my hips!' repositioned as tolerated. Medicated with prn Ultram as able. Pt confused this am asking 'where am I?' Pt reoriented frequently. Pt attempts to put legs out of bed multiple times but unsure
of why. Bed alarm on and activated.
[2024-06-27 07:40] VITALS: BP 143/87
[2024-06-27] MEDS: FOLVITE 0.4 MG PO (09:03)
[2024-06-27] MEDS: COLACE PO (09:04)
[2024-06-27] MEDS: NORVASC 10 MG PO (09:04)
[2024-06-27] MEDS: VITAMIN B1 100 MG PO (09:04)
[2024-06-27] MEDS: ASPIR LOW (ENTERIC COATED) 81 MG PO (09:04)
[2024-06-27] MEDS: OSCAL CAL 500 500 MG PO (09:04)
[2024-06-27] MEDS: PROTONIX 40 MG PO ×2 (09:04→19:53)
[2024-06-27] MEDS: COREG 6.25 MG PO ×2 (09:04→19:53)
[2024-06-27] MEDS: MIRALAX PO (09:04)
--- NOTE | 2024-06-27 09:40 | PTOTSP ---
Speech Language Pathology
Pt seen for dysphagia tx. Pt significantly improved from initial evaluation. Awake, alert, and cooperative. Pt edentulous, but typically eats without his dentures. Seen with regular solids and thin liquids. Adequate mastication, bolus
formation, and A-P transit noted with no oral residue. No overt signs of aspiration. Wheezing noted at rest and with P.O. trials. Pt stated wheezing is baseline.
Recommend:
(1) Upgrade to regular solids/thin liquids
(2) General aspiration precautions
(3) Meds as tolerated
(4) CAR PACKER to sign off. Please reconsult as indicated.
[2024-06-27 09:53] LABS: Blood Urea Nitrogen 26 mg/dl (9-20); Calcium 8.2 mg/dl (8.4-10.2); Chloride 108 mmol/L (98-107); Estimated Creatinine Clearance 36 ml/min; Glucose 80 mg/dl (70-99); Potassium 4.7 mmol/L (3.5-5.1); Sodium 143 mmol/L (135-145); eGFR 48.25
[2024-06-27 10:08] LABS: % Basophils 0.4 % (0-2); % Eosinophils 1.1 % (0-6); % Immature Granulocytes 0.4 % (0-0.5); % Lymphocytes 6.7 % (20.5-51.1); % Monocytes 4.9 % (1.7-9.3); % Neutrophils 86.5 % (42.2-75.2); Absolute Basophils 0.1 10^3/uL (0-0.2); Absolute Eosinophils 0.1 10^3/uL (0-0.7); Absolute Immature Granulocytes 0.1 10^3/uL (0-0.05); Absolute Lymphocytes 0.8 10^3/uL (1.2-3.4); Absolute Monocytes 0.6 10^3/uL (0.1-0.6); Absolute Neutrophils 9.8 10^3/uL (1.4-6.5); Hematocrit 29.5 % (39.0-52.0); Hemoglobin 9.6 g/dL (13.0-18.0); Mean Corp Hgb Conc. 32.5 g/dL (33.0-37.0); Mean Corpuscular Hgb 28.6 pg (27.0-31.0); Mean Corpuscular Volume 87.8 fL (80.0-94.0); Mean Platelet Volume 10.1 fL (7.4-10.4); Nucleated Red Blood Cells % 0 % (-); Platelet Count 428 10^3/uL (130-400); Red Blood Cell Count 3.36 10^6/uL (4.70-6.10); Red Cell Dist. Width 15.3 % (11.5-14.5); White Blood Cell Count 11.3 10^3/uL (4.8-10.8)
[2024-06-27 10:34] LABS: Carbon Dioxide 22 mmol/L (22-30)
--- NOTE | 2024-06-27 10:58 | CM ---
Addendum entered by Shante Patel 06/27/24 14:29:
Spoke with patients daughters bedside.
Additional referral sent.
Addendum entered by Shante Patel 06/27/24 12:57:
Left VM with spouse re additional options needed.
Spoke with patient and daughter bedside. They are aware we have not been able to secure a bed yet.
Original Note:
Bed search continues.
Left VM at facilities requesting review.
Will try to elicit more options from spouse.
PT/OT continues to recommend skilled rehab.
Plan: skilled rehab once bed av available.
--- NOTE | 2024-06-27 12:19 | W.PN.NEPH.PH ---
Today's Communication / Plan
-
follow BMP
Assessment/Plan
-
Assessment
Acute anemia
Iron deficiency
Acute kidney injury
LEIA with CKD 3 cr 1.7-1.8
COPD
prostate cancer
Plan
follow BMP
no IVF today
-
-
Date of Service: June 27, 2024
CC / HPI / ROS
-
Chief Complaint:
LEIA
History of Present Illness:
LEIA/Cr down to 1.5
k normal
sodium normal
BP stable
on supplemental O2
Review of Systems:
no CP/SOB
appropriate
Labs
-
Labs:
WBC 11.3 10^3/uL (4.8-10.8) H 06/27/24 09:05
RBC 3.36 10^6/uL (4.70-6.10) L 06/27/24 09:05
Hgb 9.6 g/dL (13.0-18.0) L 06/27/24 09:05
Hct 29.5 % (39.0-52.0) L 06/27/24 09:05
Plt Count 428 10^3/uL (130-400) H D 06/27/24 09:05
Sodium 143 mmol/L (135-145) 06/27/24 09:05
Potassium 4.7 mmol/L (3.5-5.1) D 06/27/24 09:05
Chloride 108 mmol/L (98-107) H 06/27/24 09:05
Carbon Dioxide 22 mmol/L (22-30) 06/27/24 09:05
BUN 26 mg/dl (9-20) H 06/27/24 09:05
Creatinine 1.5 mg/dL (0.7-1.3) H 06/27/24 09:05
eGFR 48.25 09/04/24 09:05
Glucose 80 mg/dl (70-99) 06/27/24 09:05
Calcium 8.2 mg/dl (8.4-10.2) L 06/27/24 09:05
Egn-M-Aupwopfmsxf Pept 1900 pg/ml 06/19/24 04:19
Albumin 3.0 g/dl (3.5-5.0) L 06/22/24 06:42
Physical Exam
-
Vital Signs:
Vital Signs
Temp Pulse Resp BP Pulse Ox
97.5 F 85 17 143/87 100
06/27/24 07:40 06/27/24 07:40 06/27/24 07:40 06/27/24 07:40 06/27/24 07:40
Cardiovascular:: Regular rate and rhythm
Respiratory:: Bilateral: Coarse
Lung Excursion:: Normal
Abdomen:: Nontender and Soft
Bowel Sounds:: Normal
Extremity Edema:: None: Bilateral:
--- NOTE | 2024-06-27 12:37 | W.PN.HOSP.TC ---
Today's Communication/Plan
-
Discharge planning
Assessment / Plan
Assessment / Plan
Gen-NAD, awake, alert, complaining of hip pain
HEENT-NC, AT, anicteric, clear oral mm
Neck-supple
CV-reg, no M, +S1/S2
Lungs-clear B/L
Abd-soft, NT, ND
Ext-no edema
Musculoskeletal-no cyanosis, clubbing
Skin-warm and dry
IMPRESSION:
Altered mental status/presentation with confusion.
Concern for alcohol withdrawal/DT
Severe anemia with hemoglobin of 5.
LEIA on CKD
Hypernatremia
Hypokalemia
Acute hypoxic respiratory insufficiency
Elevated pro CHF BNP
Aspiration risk
Abnormal urinalysis with concern for UTI
Other conditions:
Prostate carcinoma.
COPD not on any baseline medications.
Active tobacco smoker.
CKD 3A�B with baseline creatinine 1.7 on 09/15
Nephrolithiasis
Carotid stenosis 2005
PVD 2008
Remote history of CVA on dual antiplatelet therapy.
Essential hypertension.
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
Protein calorie malnutrition with BMI of 19
Alcohol use disorder suspected
PLAN:
Altered mental status, presentation with confusion -overall mental status improving but unclear baseline. Apparently was more awake earlier today and eating breakfast but currently sleeping with family at the bedside.
Toxic metabolic encephalopathy suspect multifactorial in the patient with severe anemia, acute kidney injury on CKD, developing alcohol withdrawal with DT, possible UTI
Aspiration risk due to above
No focal findings on neurologic exam.
CT scan of the head with no acute abnormalities.
Ammonia within normal limits
Urine drug screen negative
Aspiration risk.
Diet has been advanced to regular/thins with recommendation of speech pathology.
Acute hypoxic respiratory insufficiency.
Currently on 2 L of nasal cannula oxygen
Aspiration risk.
Elevated pro CHF BNP suspected in settings of large volume blood transfusion given on admission
Echocardiogram with preserved biventricular function.
COPD not on home O2.
Exam and presentation with no evidence of bronchospasm
Continue short acting bronchodilators as needed
Polymicrobial UTI -completed course of antibiotics.
Enterococcal bacteriuria
Blood cultures negative to date
Severe anemia, normocytic -GI bleed suspected and complicated by dual antiplatelet therapy.
Heme positive stool on presentation
Hemodynamically stable with no evidence of acute blood loss
Noted elevated BUN 35/creatinine 2.6, unknown baseline.
Normal LFT, bilirubin, less likely hemolysis.
Patient is on dual antiplatelet therapy for remote CVA, NSAIDs, recent prednisone given as a part of treatment for prostate carcinoma.
High risk and suspect upper GI source with slow blood loss.
History of colon resection for complicated diverticulitis with colostomy reversal, reports recent colonoscopy in outside institution with no abnormalities.
Status post transfusion of PRBC 4 units 06/18 - 06/19.
Hemoglobin stable in the 8 range now.
Plavix on hold since admission due to presentation with significant anemia and GI bleed, avoid NSAIDs, currently not on steroids. Continue aspirin given history of stroke. Spoke with family about the role of dual antiplatelet therapy in the
setting of previous stroke. Family states that the stroke was 24 years ago. Recommend outpatient follow-up with his neurologist to decide on true need for DAPT after discharge.
Protonix twice daily.
Iron levels consistent with mixed picture of iron deficiency and anemia of chronic disease
EPO at 277
Gastroenterology consultation. GI service signed off. Today I spoke with Dr. Kaplan, and he recommends outpatient GI bleed workup.
LEIA on CKD -creatinine improved, 1.5 today. Given gentle IV fluids by nephrology.
Hypernatremia--resolved.
Hypokalemia -resolved.
Acute left upper extremity superficial vein thrombosis -noted on ultrasound, basilic vein. Supportive care. Hold off on anticoagulation given presentation with anemia, heme positive stools. Discussed with family.
Alcohol use disorder -family states he has 3 ounces of gin daily. Completing phenobarbital taper. Currently on alcohol withdrawal protocol. Continue folic acid, thiamine.
Essential hypertension -Continue Norvasc, hold losartan as above.
Prostate carcinoma locally advanced -Recent beads implantation. Recently on Zytiga and prednisone. Reports no distant metastatic disease. Plan for radiation therapy.
Primary oncologist at [facility]
Bilateral hip osteoarthritis -Has bilateral hip replacements according to family. Patient states Tylenol is not helping. Recommend getting out of bed into the chair. Discussed with family and nurse. Avoid NSAIDs given renal insufficiency. Add
low-dose Ultram as needed.
DVT prophylaxis/mechanical.
Full code.
Dispo -medically stable for discharge to SNF. Case management aware.
Anticipated Discharge: Within 24 hours
Subjective/Interval History
-
Date of Service: June 27, 2024
Patient seen and examined. No complaints.
Objective Data
-
Labs:
Laboratory Results
06/27/24
09:05
WBC 11.3 H
Hgb 9.6 L
Hct 29.5 L
Plt Count 428 H D
Sodium 143
Potassium 4.7 D
Chloride 108 H
Carbon Dioxide 22
BUN 26 H
Creatinine 1.5 H
Glucose 80
Calcium 8.2 L
Vital Signs:
Vital Signs
Temp Pulse Resp BP Pulse Ox
97.5 F 85 17 143/87 100
06/27/24 07:40 06/27/24 07:40 06/27/24 07:40 06/27/24 07:40 06/27/24 07:40
I&O
06/26/24 06/27/24 06/28/24
06:59 06:59 06:59
Intake Total 216 / 216 1200 / 1200
Output Total 325 / 325 100 / 100
Balance -109 / -109 1200 / 1200 -100 / -100
Review of Systems
-
History Source: Patient
All other systems: Reviewed and negative
[2024-06-27 13:53] VITALS: BP 137/71; PULSE 69; O2SAT 98
[2024-06-27 15:25] VITALS: BP 120/58
[2024-06-27] MEDS: LIPITOR 20 MG PO (17:25)
[2024-06-27] MEDS: COLACE 100 MG PO (19:54)
[2024-06-27 23:58] VITALS: BP 165/71
[2024-06-28] MEDS: DUONEB 3 ML INH (01:47)
--- NOTE | 2024-06-28 02:29 | W.PN.UPDATE ---
Addendum entered and electronically signed by DELL Cottrell 06/28/24 03:43:
CT Right LE results Impression states: Subcutaneous hematoma w/in medial soft tissues of the RLE measuring approx 4.3x1.2x9.8 cm. No fracture or traumatic malalignment. Right hip arthroplasty w/o evidence of hardware complication. Vascular
calcification. Discussed with Dr. Garcia
Will order ice compression, elevate Leg, Tylenol as needed for pain at present.
Patient does not recall hitting anywhere, reports he had a fall recently, no documentation noted.
Original Note:
Update Note
Progress Note Update
RN notified SECTION WEAVER she noticed a new bruise Right medial thigh. Patient seen and evaluated. Right inner thigh swelling, edema, ecchymotic hard area, warm and tender to touch, likely hematoma. Patient admitted with change in mental status, states he
noticed it yesterday and pain has been increasing ever since. no cuts or bleeding noted. + pulses, noted RLE edema comparing to LLE. Patient able to move leg but in pain. Will order CT RLE without contrast to r/o bleed, hematoma. On ASA, was on DAPT
at home for hx of stroke. vitals stable, hgb stable at present. labs in AM
[2024-06-28] MEDS: ULTRAM 25 MG PO (03:37)
--- NOTE | 2024-06-28 04:49 | PTCARENOTE ---
New bruise with tense swelling, warm, and tender to touch of the medial right upper thigh noted on assessment. Notified SWAGING MACHINE OPERATOR Юлия [place]. SWAGING MACHINE OPERATOR assessed pt at bedside. New orders placed. CT completed. New orders in placed. Plan of care ongoing.
[2024-06-28 05:02] LABS: Hematocrit 25.9 % (39.0-52.0); Hemoglobin 8.3 g/dL (13.0-18.0); Mean Corpuscular Hgb 28.5 pg (27.0-31.0); Mean Platelet Volume 10.3 fL (7.4-10.4); Platelet Count 384 10^3/uL (130-400); Red Blood Cell Count 2.91 10^6/uL (4.70-6.10); Red Cell Dist. Width 15.1 % (11.5-14.5); White Blood Cell Count 9.9 10^3/uL (4.8-10.8)
[2024-06-28 05:23] LABS: Blood Urea Nitrogen 22 mg/dl (9-20); Calcium 8.1 mg/dl (8.4-10.2); Carbon Dioxide 24 mmol/L (22-30); Chloride 106 mmol/L (98-107); Estimated Creatinine Clearance 38 ml/min; Glucose 80 mg/dl (70-99); Potassium 4.3 mmol/L (3.5-5.1); Sodium 139 mmol/L (135-145); eGFR 52.41
[2024-06-28 07:45] VITALS: BP 174/64
[2024-06-28] MEDS: FOLVITE 0.4 MG PO (08:18)
[2024-06-28] MEDS: VITAMIN B1 100 MG PO (08:18)
[2024-06-28] MEDS: MIRALAX 17 GRAMS PO (08:18)
[2024-06-28] MEDS: TYLENOL 650 MG PO (08:18)
[2024-06-28] MEDS: NORVASC 10 MG PO (08:19)
[2024-06-28] MEDS: ASPIR LOW (ENTERIC COATED) 81 MG PO (08:19)
[2024-06-28] MEDS: PROTONIX 40 MG PO (08:19)
[2024-06-28] MEDS: COLACE 100 MG PO (08:19)
[2024-06-28] MEDS: OSCAL CAL 500 500 MG PO (08:19)
[2024-06-28] MEDS: COREG 6.25 MG PO (08:20)
--- NOTE | 2024-06-28 08:39 | W.PN.HOSP.TC ---
Addendum entered and electronically signed by Noe Llamas DO 06/28/24 11:07:
I spoke with patient's at the bedside. Informed her of findings of hematoma in the right proximal thigh. She was not aware of the hematoma prior to admission. Suspect hematoma related to dual antiplatelet therapy prior to admission. All
questions answered.
Stable for discharge to [facility] for rehab today. Family agrees.
Original Note:
Today's Communication/Plan
-
Discharge planning
Assessment / Plan
Assessment / Plan
Gen-NAD, awake, alert, complaining of hip pain
HEENT-NC, AT, anicteric, clear oral mm
Neck-supple
CV-reg, no M, +S1/S2
Lungs-clear B/L
Abd-soft, NT, ND
Ext-no edema
Musculoskeletal-no cyanosis, clubbing
Skin-warm and dry
Acute TME -likely multifactorial etiology, including alcohol abuse, anemia, electrolyte abnormalities, etc. Overall improving mental status.
Acute blood loss anemia -suspect related to multiple factors including GI bleed, right thigh hematoma, etc. Transfused 4 units of blood so far with improvement. Monitor hemoglobin closely. GI recommends conservative management, outpatient
follow-up. Did not get endoscopic evaluation.
Hemoglobin has been averaging in the 8 range for the past 5 days. Stool has been brown.
Right proximal thigh hematoma -spontaneous and likely exacerbated by dual antiplatelet therapy prior to admission. No reported history of falls. CT scan confirms hematoma, orthopedic hardware intact. No fractures noted. Patient denies following.
Monitor and treat conservatively for now. Case discussed with orthopedics on the phone, Dr. Tapia.
LEIA on CKD 3a -LEIA improved. Etiology likely due to volume depletion, anemia, etc.
Hypernatremia -improved.
Hypokalemia -improved.
Acute hypoxic respiratory insufficiency -resolved.
COPD without exacerbation - not on any baseline medications.
Active tobacco smoker.
Nephrolithiasis
Carotid stenosis 2005
PVD 2008
Remote history of CVA on dual antiplatelet therapy.
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
Protein calorie malnutrition with BMI of 19
Aspiration risk -Diet has been advanced to regular/thins with recommendation of speech pathology.
Polymicrobial UTI -completed course of antibiotics.
Enterococcal bacteriuria
Blood cultures negative to date
Acute left upper extremity superficial vein thrombosis -noted on ultrasound, basilic vein. Supportive care. Hold off on anticoagulation given presentation with anemia, heme positive stools. Discussed with family.
Alcohol use disorder -family states he has 3 ounces of gin daily. Completing phenobarbital taper. Currently on alcohol withdrawal protocol. Continue folic acid, thiamine.
Essential hypertension -Continue Norvasc, hold losartan as above.
Prostate carcinoma locally advanced -Recent beads implantation. Recently on Zytiga and prednisone. Reports no distant metastatic disease. Plan for radiation therapy.
Primary oncologist at [facility]
Bilateral hip osteoarthritis -Has bilateral hip replacements. Hip x-rays show intact hardware, no fracture. Has ongoing chronic pain in both hips. Continue Tylenol, low-dose Ultram as needed. PT/OT.
DVT prophylaxis/mechanical.
Full code.
Dispo -medically stable for discharge to SNF. Case management aware.
Tried to call but went to voicemail.
Anticipated Discharge: Today
Subjective/Interval History
-
Date of Service: June 28, 2024
Patient seen and examined. Complaining of discomfort in right proximal thigh.
Objective Data
-
Labs:
Laboratory Results
06/28/24
04:23
WBC 9.9
Hgb 8.3 L
Hct 25.9 L
Plt Count 384
Sodium 139
Potassium 4.3
Chloride 106
Carbon Dioxide 24
BUN 22 H
Creatinine 1.4 H
Glucose 80
Calcium 8.1 L
Vital Signs:
Vital Signs
Temp Pulse Resp BP Pulse Ox
97.8 F 81 17 174/64 99
06/28/24 07:45 06/28/24 08:20 06/28/24 07:45 06/28/24 08:20 06/28/24 07:45
I&O
06/27/24 06/28/24 06/29/24
06:59 06:59 06:59
Intake Total 1200 / 1200 360 / 360
Output Total 160 / 160
Balance 1200 / 1200 200 / 200
Review of Systems
-
History Source: Patient
All other systems: Reviewed and negative
--- NOTE | 2024-06-28 10:42 | CM ---
Addendum entered by Shante Patel 06/28/24 13:40:
IMM reviewd and signed.
Ambulance transport with [facility] 3:30 pm.
Original Note:
Patient seen bedside with spouse.
Bed available at [facility] for today.
Spouse in agreement.
Plan: PR today via ambulance transport
[facility]
Report# [phone]
--- NOTE | 2024-06-28 10:49 | W.PN.NEPH.PH ---
Today's Communication / Plan
-
dc planning
Assessment/Plan
-
Assessment
Acute anemia
Iron deficiency
Acute kidney injury
LEIA with CKD 3 cr 1.7-1.8
COPD
prostate cancer
Plan
follow BMP
dc planning
d/w daughter
-
-
Date of Service: June 28, 2024
CC / HPI / ROS
-
Chief Complaint:
LEIA
History of Present Illness:
LEIA/Cr down to 1.4
k normal
sodium normal
BP stable
on supplemental O2
Review of Systems:
no CP/SOB
bedbound
Labs
-
Labs:
WBC 9.9 10^3/uL (4.8-10.8) 06/28/24 04:23
RBC 2.91 10^6/uL (4.70-6.10) L 06/28/24 04:23
Hgb 8.3 g/dL (13.0-18.0) L 06/28/24 04:23
Hct 25.9 % (39.0-52.0) L 06/28/24 04:23
Plt Count 384 10^3/uL (130-400) 06/28/24 04:23
Sodium 139 mmol/L (135-145) 06/28/24 04:23
Potassium 4.3 mmol/L (3.5-5.1) 06/28/24 04:23
Chloride 106 mmol/L (98-107) 06/28/24 04:23
Carbon Dioxide 24 mmol/L (22-30) 06/28/24 04:23
BUN 22 mg/dl (9-20) H 06/28/24 04:23
Creatinine 1.4 mg/dL (0.7-1.3) H 06/28/24 04:23
eGFR 52.41 06/28/24 04:23
Glucose 80 mg/dl (70-99) 06/28/24 04:23
Calcium 8.1 mg/dl (8.4-10.2) L 06/28/24 04:23
Qbc-H-Maozjbxljos Pept 1900 pg/ml 06/19/24 04:19
Albumin 3.0 g/dl (3.5-5.0) L 06/22/24 06:42
Physical Exam
-
Vital Signs:
Vital Signs
Temp Pulse Resp BP Pulse Ox
97.8 F 81 17 174/64 99
06/28/24 07:45 06/28/24 08:20 06/28/24 07:45 06/28/24 08:20 06/28/24 07:45
Cardiovascular:: Regular rate and rhythm
Respiratory:: Bilateral: Coarse
Lung Excursion:: Normal
Abdomen:: Nontender and Soft
Bowel Sounds:: Normal
Extremity Edema:: None: Bilateral:
--- NOTE | 2024-06-28 11:12 | W.DS.TRANS ---
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
-
Discharge Instructions:
Discharge Diagnosis/Procedures Acute on chronic anemia, right proximal thigh
hematoma, acute TME, electrolyte abnormalities
Diet Regular
Activity With assistance,As tolerated
Driving Restrictions No driving
Bathing Restrictions None
Blood Work CBC, BMP on Tuesday
Instructions:
Stand-Alone Forms:
Changes to Home Medications: Yes
Discharge Medications:
DC Medications w/original date entered in [facility]
amlodipine 10 mg tablet (Norvasc) 10 mg PO DAILY Blood Pressure 06/18/24
aspirin 81 mg tablet,delayed release 81 mg PO DAILY Blood Clot Prevention/Tx 06/18/24
atorvastatin 20 mg tablet (Lipitor) 20 mg PO QPM High Cholesterol 06/18/24
calcium carbonate 500 mg PO DAILY Supplement 06/18/24
carvedilol 6.25 mg tablet (Coreg) 6.25 mg PO BID Blood Pressure 06/18/24
folic acid 400 mcg tablet 0.4 mg PO DAILY Supplement 06/18/24
polyethylene glycol 3350 17 gram oral powder packet (Miralax) 17 g PO DAILYPRN PRN constipation 06/18/24
docusate sodium 100 mg capsule 100 mg PO BID #0 caps 06/28/24
ipratropium 0.5 mg-albuterol 3 mg (2.5 mg base)/3 mL nebulization soln 3 ml inhalation R Q4HPRN PRN cough, wheezing, sob #0 mL 06/28/24
pantoprazole 40 mg tablet,delayed release 40 mg PO BID #0 tabs 06/28/24
thiamine HCl (vitamin B1) 100 mg tablet 100 mg PO DAILY #0 tabs 06/28/24
tramadol 50 mg tablet 25 mg (1/2 x 50 mg) PO Q6HPRN PRN severe pain #6 tabs 06/28/24
Home Medication Changes
Stop diclofenac
Stop Plavix
Pending Results: No
== END 2024-06-28 16:45 | DRG 896 ==
LOC: 4 WEST ACU 17:04
PROVIDERS: Internal Medicine; Nurse Practitioner Adult Health; Nurse Practitioner Family; Nurse Practitioner Gerontology; Physician Assistant; ADMITTING PHYSICIAN Internal Medicine; ATTENDING PHYSICIAN Hospitalist; CONSULT PHYSICIAN Specialist; EMERGENCY PHYSICIAN Emergency Medicine; OTHER PHYSICIAN Internal Medicine Gastroenterology
PROC: 30233N1 Transfusion of Nonautologous Red Blood Cells into Peripheral Vein, Percutaneous Approach (ICD-10-PCS; 2024-06-18)
DX: F10.231 Alcohol dependence with withdrawal delirium (principal); G92.8 Other toxic encephalopathy; D68.32 Hemorrhagic disorder due to extrinsic circulating anticoagulants; N17.9 Acute kidney failure, unspecified; R17 Unspecified jaundice; Z68.1 Body mass index [BMI] 19.9 or less, adult; E87.0 Hyperosmolality and hypernatremia; E44.0 Moderate protein-calorie malnutrition; K92.1 Melena; I82.612 Acute embolism and thrombosis of superficial veins of left upper extremity; D62 Acute posthemorrhagic anemia; N39.0 Urinary tract infection, site not specified; C61 Malignant neoplasm of prostate; I12.9 Hypertensive chronic kidney disease with stage 1 through stage 4 chronic kidney disease, or unspecified chronic kidney disease; E78.00 Pure hypercholesterolemia, unspecified; J44.9 Chronic obstructive pulmonary disease, unspecified; R09.02 Hypoxemia; R06.89 Other abnormalities of breathing; N18.30 Chronic kidney disease, stage 3 unspecified; K43.9 Ventral hernia without obstruction or gangrene; D63.8 Anemia in other chronic diseases classified elsewhere; E87.6 Hypokalemia; D50.9 Iron deficiency anemia, unspecified; S70.11XA Contusion of right thigh, initial encounter; X58.XXXA Exposure to other specified factors, initial encounter; Y92.9 Unspecified place or not applicable; F17.200 Nicotine dependence, unspecified, uncomplicated; B95.2 Enterococcus as the cause of diseases classified elsewhere; M16.0 Bilateral primary osteoarthritis of hip; Z96.643 Presence of artificial hip joint, bilateral; Z92.3 Personal history of irradiation; Z92.21 Personal history of antineoplastic chemotherapy; Z86.73 Personal history of transient ischemic attack (TIA), and cerebral infarction without residual deficits; Z79.02 Long term (current) use of antithrombotics/antiplatelets; Z87.828 Personal history of other (healed) physical injury and trauma; Z87.19 Personal history of other diseases of the digestive system; Z79.82 Long term (current) use of aspirin; Z90.49 Acquired absence of other specified parts of digestive tract; Z11.52 Encounter for screening for COVID-19; Z79.52 Long term (current) use of systemic steroids; Z68.21 Body mass index [BMI] 21.0-21.9, adult
CPT/HCPCS: 36430; 70450; 71045; 73522; 73700; 80048; 80053; 80202; 80306; 81003; 81015; 82077; 82140; 82570; 82668; 82728; 82784; 82805; 83010; 83521; 83540; 83550; 83615; 83735; 83880; 84155; 84165; 84300; 84443; 84484; 85025; 85027; 85045; 85610; 85730; 86334; 86850; 86900; 86901; 86920; 87040; 87077; 87086; 87186; 87811; 92526; 92610; 93005; 93306; 93971; 94640; 96374; 97163; 97167; 97530; 99291; 99406; J2916; P9016

== ENCOUNTER → 2024-07-02 11:02 | Outpatient (REF) | payer OTHER, MEDICARE, SELFPAY ==
[2024-07-02 14:10] LABS: Blood Urea Nitrogen 15 mg/dl (9-20); Calcium 8.2 mg/dl (8.4-10.2); Carbon Dioxide 23 mmol/L (22-30); Chloride 104 mmol/L (98-107); Glucose 76 mg/dl (70-99); Potassium 4.2 mmol/L (3.5-5.1); Sodium 140 mmol/L (135-145); eGFR > 60.00
[2024-07-02 14:22] LABS: % Basophils 0.4 % (0-2); % Eosinophils 1.8 % (0-6); % Immature Granulocytes 0.5 % (0-0.5); % Lymphocytes 6.9 % (20.5-51.1); % Monocytes 6.3 % (1.7-9.3); % Neutrophils 84.1 % (42.2-75.2); Absolute Eosinophils 0.2 10^3/uL (0-0.7); Absolute Immature Granulocytes 0.1 10^3/uL (0-0.05); Absolute Lymphocytes 0.8 10^3/uL (1.2-3.4); Absolute Monocytes 0.7 10^3/uL (0.1-0.6); Absolute Neutrophils 9.2 10^3/uL (1.4-6.5); Hematocrit 20.1 % (39.0-52.0); Hemoglobin 6.7 g/dL (13.0-18.0); Mean Corp Hgb Conc. 33.3 g/dL (33.0-37.0); Mean Corpuscular Hgb 28.2 pg (27.0-31.0); Mean Corpuscular Volume 84.5 fL (80.0-94.0); Mean Platelet Volume 11.6 fL (7.4-10.4); Nucleated Red Blood Cells % 0 % (-); Platelet Count 264 10^3/uL (130-400); Red Blood Cell Count 2.38 10^6/uL (4.70-6.10); Red Cell Dist. Width 15.2 % (11.5-14.5); White Blood Cell Count 10.9 10^3/uL (4.8-10.8)
== END ==
LOC: OLABP 11:02
PROVIDERS: ATTENDING PHYSICIAN Family Medicine
DX: K92.2 Gastrointestinal hemorrhage, unspecified (principal); N39.0 Urinary tract infection, site not specified; B95.2 Enterococcus as the cause of diseases classified elsewhere; D64.9 Anemia, unspecified; B95.0 Streptococcus, group A, as the cause of diseases classified elsewhere; I82.612 Acute embolism and thrombosis of superficial veins of left upper extremity; F10.231 Alcohol dependence with withdrawal delirium; N17.9 Acute kidney failure, unspecified; N18.30 Chronic kidney disease, stage 3 unspecified; E87.0 Hyperosmolality and hypernatremia; I65.29 Occlusion and stenosis of unspecified carotid artery; I73.9 Peripheral vascular disease, unspecified; J44.9 Chronic obstructive pulmonary disease, unspecified; Z72.0 Tobacco use; N20.0 Calculus of kidney
CPT/HCPCS: 36415; 80048; 85025

== ENCOUNTER 2024-07-03 17:00 | Emergency (ER) | payer MEDICARE, OTHER, SELFPAY ==
[2024-07-03] VITALS (12 sets, daily range): BP systolic 142–172; BP diastolic 54–123; BMI 22.9
--- NOTE | 2024-07-03 17:46 | ED.GENMED ---
History of Present Illness
General
Chief Complaint: Abnormal Lab Value
Time Seen by Provider: 07/03/24 17:46
History of Present Illness
History of Present Illness:
HPI: The patient presents due to hemoglobin of 6.2 that was drawn earlier today. Yesterday the hemoglobin was 6.7. He was here recently in the hospital related to anemia and required blood transfusion. He states that he was not commended for
endoscopy because he was too weak. The patient had been getting physical therapy/rehab at [facility] and was sent here for further evaluation. He denies any rectal bleeding. He is on aspirin but is not on anticoagulation.
EXAM:
GENERAL: The patient appears generally weak and debilitated
HEENT: Moist oral mucosa
CARDIOVASCULAR: No murmurs, normal heart rate, regular rhythm, No chest wall tenderness
PULMONARY: No respiratory distress, breath sounds are clear and equal
ABDOMEN: Soft with no peritoneal signs, no tenderness
NEUROLOGIC: Fair strength all extremities, no coordination deficits
PSYCHIATRIC: Appropriate mental status, normal insight and judgement
EXTREMITIES: Nontender, no edema, moves all extremities equally, ecchymosis noted which is somewhat older appearing in the right proximal thigh, creatinine 1.4
SKIN: Appears somewhat pale
TIME OF INITIAL ENCOUNTER: 6 PM
NUMBER AND COMPLEXITY OF PROBLEMS ADDRESSED AT THE ENCOUNTER
� Chronic conditions affecting care: CAD, high blood pressure, hyperlipidemia, diverticular disease
� Acute Exacerbation and/or Progression of Chronic Illness: This is a subacute problem
� Differential Diagnosis includes: GI bleeding, anemia of chronic disease, anemia related to hematoma in the right thigh, iron deficiency anemia
AMOUNT AND/OR COMPLEXITY OF DATA TO BE REVIEWED AND ANALYZED
� I performed an independent evaluation of and my interpretation is:
EKG:
CT:
X-rays:
Laboratory Studies: Hemoglobin 6.8, creatinine 1.4
Other:
� Review of other/old records: The patient was admitted with encephalopathy until 5 days ago. He also had acute blood loss anemia and it was noted that he had a hematoma to the proximal right thigh. His hemoglobin was down to
5.0
� Clinical information was obtained by an independent historian: I spoke to at bedside
� Prescriptions/Medications Considered but not given:
� Further testing considered but not performed: Considered keeping the patient in the hospital however the patient's hemoglobin is actually a bit higher currently and has no symptoms.
RISK OF COMPLICATIONS AND/OR MORBIDITY OR MORTALITY OF PATIENT MANAGEMENT
� Social determinants of health affecting care: Currently staying at [facility]
� Discussion with other providers: None needed
� Escalation of care including admission/observation vs risk of discharge considered: The patient currently has no symptoms. He is hemodynamically stable. The hemoglobin is 6.8 which is actually low but higher than it was
earlier in the day. Since he has no symptoms, recommend 1 unit of blood and he will go back to [facility] for further rehab. I performed digital rectal examination which showed heme negative yellowish-brown stool with no evidence of bleeding.
Phy Exam
Physical Exam
Physical Exam:
See HPI
Course
Orders/Labs/Results
Orders:
Orders
07/03/24 17:34
Complete Blood Count/With Diff Urgent
Comprehensive Metabolic Panel Urgent
Ferritin Urgent
Comment: ADDON
Iron Urgent
Comment: ADDON
Total Iron Binding Urgent
Comment: ADDON
07/03/24 17:59
Type+Screen Urgent
07/03/24 18:07
* Blood Bank Products Urgent
Blood Bank Products: *Packed RBC Leuko(PRBC's)
Quantity: 1
Transfuse Today: Yes
Reason: Anemia
Patient will require pre-treatment for transfusion:: No
Comment: Signed
07/03/24 20:28
Add On- LAB Urgent
Tests Added?: iron panel, TIBC, ferritin
Abnormal Lab Results
07/03/24 07/03/24
17:34 17:59
RBC 2.36 L 10^6/uL
(4.70-6.10)
Hgb 6.8 L* g/dL
(13.0-18.0)
Hct 20.7 L* %
(39.0-52.0)
MCHC 32.9 L g/dL
(33.0-37.0)
RDW 15.3 H %
(11.5-14.5)
Plt Count 529 H 10^3/uL
(130-400)
Absolute Neuts (auto) 8.8 H 10^3/uL
(1.4-6.5)
Absolute Lymphs (auto) 0.8 L 10^3/uL
(1.2-3.4)
Absolute Monos (auto) 0.7 H 10^3/uL
(0.1-0.6)
Neutrophils % 81.8 H %
(42.2-75.2)
Lymphocytes % 7.7 L %
(20.5-51.1)
Creatinine 1.4 H mg/dL
(0.7-1.3)
Glucose 116 H mg/dl
(70-99)
Calcium 8.2 L mg/dl
(8.4-10.2)
Iron < 20 L ug/dl
(49-181)
TIBC 212 L ug/dl
(261-462)
Total Protein 5.4 L g/dl
(6.3-8.2)
Albumin 2.8 L g/dl
(3.5-5.0)
Crossmatch IS Only See Detail
07/03/24 17:34
07/03/24 17:34
Vital Signs
Initial and Last Documented VS:
Initial Vital Signs
Temp Pulse Resp BP Pulse Ox
98.3 F 72 19 142/54 89
09/10/24 17:03 07/03/24 17:03 07/03/24 17:03 07/03/24 17:03 07/03/24 17:03
Last Documented Vital Signs
Temp Pulse Resp BP Pulse Ox
98.1 F 71 19 166/64 92
07/03/24 20:34 07/03/24 20:34 07/03/24 20:34 07/03/24 20:34 07/03/24 20:37
*Critical Care Note
Total Time (30-74mins, 75-104mins- exclusive of procedures): Not Applicable
ED Attending Note
-
Portions of this chart may have been created with voice recognition software.� Occasional wrong word or��sound alike� substitutions may have occurred due to the inherent limitations of voice recognition software.
Discharge Plan
Departure
Patient Disposition: Home (Routine Discharge)
Date of Disposition: 07/03/24
Time of Disposition: 19:44
Patient with high blood pressure during this ER visit?: Yes
Discharge Problem:
Anemia
Prescriptions:
No Action
carvedilol [Coreg] 6.25 mg Tablet
6.25 mg PO BID
atorvastatin [Lipitor] 20 mg Tablet
20 mg PO QPM
polyethylene glycol 3350 [Miralax] 17 gram Powder In Packet
17 g PO DAILYPRN PRN (Reason: constipation)
folic acid 400 mcg Tablet
0.4 mg PO DAILY
aspirin 81 mg Tablet,Delayed Release (Dr/Ec)
81 mg PO DAILY
amlodipine [Norvasc] 10 mg Tablet
10 mg PO DAILY
calcium carbonate 500 mg calcium (1,250 mg) Tablet
500 mg PO DAILY
ipratropium-albuterol 0.5 mg-3 mg(2.5 mg base)/3 mL Solution For Nebulization
3 ml inhalation R Q4HPRN PRN (Reason: cough, wheezing, sob) Qty: 0 0RF
thiamine HCl (vitamin B1) 100 mg Tablet
100 mg PO DAILY Qty: 0 0RF
tramadol 50 mg Tablet
25 mg PO Q6HPRN PRN (Reason: severe pain) Qty: 6 0RF
pantoprazole 40 mg Tablet,Delayed Release (Dr/Ec)
40 mg PO BID Qty: 0 0RF
docusate sodium 100 mg Capsule
100 mg PO BID Qty: 0 0RF
Referrals:
Reynold Avendano MD [Family Provider] -
Activity Restrictions/Additional Instructions:
Your hemoglobin today is slightly improved now at 6.8 up from 6.2 earlier today. There was no sign of bleeding on your digital rectal examination. Your kidney function is slightly impaired but similar to prior. We are giving you 1 unit of blood
and since you have no significant symptoms we will plan discharge. Return here if worse and I do recommend repeat hemoglobin testing as an outpatient.
Interventions
Interventions:
*Risk Screen - Suicide Last Done: 07/03/24 17:03
*General Assessment Last Done: 07/03/24 17:03
*Neglect/Abuse Screening Last Done: 07/03/24 17:03
ED- Fall Risk Assessment Last Done: 07/03/24 21:45
*ED COVID-19 Vaccine History Last Done: 07/03/24 17:03
*Nursing Disposition Last Done: 07/03/24 21:45
Discharge Date and Time
Discharge Date/Time: 07/03/24 22:00
Print Language: CHILEAN
[2024-07-03 17:57] LABS: % Basophils 0.5 % (0-2); % Immature Granulocytes 0.4 % (0-0.5); % Lymphocytes 7.7 % (20.5-51.1); % Monocytes 6.6 % (1.7-9.3); % Neutrophils 81.8 % (42.2-75.2); Absolute Basophils 0.1 10^3/uL (0-0.2); Absolute Eosinophils 0.3 10^3/uL (0-0.7); Absolute Lymphocytes 0.8 10^3/uL (1.2-3.4); Absolute Monocytes 0.7 10^3/uL (0.1-0.6); Absolute Neutrophils 8.8 10^3/uL (1.4-6.5); Hematocrit 20.7 % (39.0-52.0); Hemoglobin 6.8 g/dL (13.0-18.0); Mean Corp Hgb Conc. 32.9 g/dL (33.0-37.0); Mean Corpuscular Hgb 28.8 pg (27.0-31.0); Mean Corpuscular Volume 87.7 fL (80.0-94.0); Mean Platelet Volume 9.6 fL (7.4-10.4); Nucleated Red Blood Cells % 0 % (-); Platelet Count 529 10^3/uL (130-400); Red Blood Cell Count 2.36 10^6/uL (4.70-6.10); Red Cell Dist. Width 15.3 % (11.5-14.5); White Blood Cell Count 10.7 10^3/uL (4.8-10.8)
[2024-07-03 17:58] LABS: ALT (SGPT) 16 U/L (0-50); AST (SGOT) 30 U/L (17-59); Albumin 2.8 g/dl (3.5-5.0); Alkaline Phosphatase 75 U/L (38-126); Blood Urea Nitrogen 19 mg/dl (9-20); Calcium 8.2 mg/dl (8.4-10.2); Carbon Dioxide 29 mmol/L (22-30); Chloride 102 mmol/L (98-107); Estimated Creatinine Clearance 41 ml/min; Glucose 116 mg/dl (70-99); Potassium 4.6 mmol/L (3.5-5.1); Sodium 138 mmol/L (135-145); Total Bilirubin 0.5 mg/dl (0.2-1.3); Total Protein 5.4 g/dl (6.3-8.2); eGFR 52.41
[2024-07-03 20:45] LABS: Iron < 20 ug/dl (49-181)
[2024-07-03 20:52] LABS: Total Iron Binding Capacity 212 ug/dl (261-462)
== END 2024-07-03 22:00 | disposition home or self-care (01) ==
LOC: EMR 17:00
PROVIDERS: EMERGENCY PHYSICIAN Emergency Medicine; FAMILY PHYSICIAN Family Medicine
DX: D64.9 Anemia, unspecified (principal); I25.10 Atherosclerotic heart disease of native coronary artery without angina pectoris; R03.0 Elevated blood-pressure reading, without diagnosis of hypertension; E78.00 Pure hypercholesterolemia, unspecified; Z79.82 Long term (current) use of aspirin
CPT/HCPCS: 99285; 36430; 36415; 80053; 82728; 83540; 83550; 85025; 86850; 86900; 86901; 86920; P9016

== ENCOUNTER → 2024-07-06 10:43 | Outpatient (REF) | payer OTHER, MEDICARE, SELFPAY ==
[2024-07-06 11:11] LABS: % Basophils 0.8 % (0-2); % Eosinophils 3.8 % (0-6); % Immature Granulocytes 0.3 % (0-0.5); % Lymphocytes 9.5 % (20.5-51.1); % Monocytes 8.1 % (1.7-9.3); % Neutrophils 77.5 % (42.2-75.2); Absolute Basophils 0.1 10^3/uL (0-0.2); Absolute Eosinophils 0.3 10^3/uL (0-0.7); Absolute Lymphocytes 0.9 10^3/uL (1.2-3.4); Absolute Monocytes 0.7 10^3/uL (0.1-0.6); Hematocrit 25.3 % (39.0-52.0); Mean Corp Hgb Conc. 31.6 g/dL (33.0-37.0); Mean Corpuscular Hgb 27.3 pg (27.0-31.0); Mean Corpuscular Volume 86.3 fL (80.0-94.0); Mean Platelet Volume 9.5 fL (7.4-10.4); Nucleated Red Blood Cells % 0 % (-); Platelet Count 693 10^3/uL (130-400); Red Blood Cell Count 2.93 10^6/uL (4.70-6.10); Red Cell Dist. Width 14.8 % (11.5-14.5)
== END ==
LOC: OLABP 10:43
PROVIDERS: ATTENDING PHYSICIAN Family Medicine
DX: K92.2 Gastrointestinal hemorrhage, unspecified (principal); S70.11XD Contusion of right thigh, subsequent encounter; D64.9 Anemia, unspecified; N39.0 Urinary tract infection, site not specified; B95.2 Enterococcus as the cause of diseases classified elsewhere; B95.0 Streptococcus, group A, as the cause of diseases classified elsewhere; E87.0 Hyperosmolality and hypernatremia; E87.6 Hypokalemia; N17.9 Acute kidney failure, unspecified
CPT/HCPCS: 36415; 85025

== ENCOUNTER → 2024-07-07 14:24 | Outpatient (REF) | payer OTHER, MEDICARE, SELFPAY ==
[2024-07-07 14:40] LABS: % Basophils 0.7 % (0-2); % Eosinophils 3.5 % (0-6); % Immature Granulocytes 0.6 % (0-0.5); % Lymphocytes 8.5 % (20.5-51.1); % Monocytes 7.2 % (1.7-9.3); % Neutrophils 79.5 % (42.2-75.2); Absolute Basophils 0.1 10^3/uL (0-0.2); Absolute Eosinophils 0.4 10^3/uL (0-0.7); Absolute Immature Granulocytes 0.1 10^3/uL (0-0.05); Absolute Lymphocytes 0.9 10^3/uL (1.2-3.4); Absolute Monocytes 0.7 10^3/uL (0.1-0.6); Absolute Neutrophils 8.1 10^3/uL (1.4-6.5); Hematocrit 25.9 % (39.0-52.0); Hemoglobin 8.4 g/dL (13.0-18.0); Mean Corp Hgb Conc. 32.4 g/dL (33.0-37.0); Mean Corpuscular Hgb 27.7 pg (27.0-31.0); Mean Corpuscular Volume 85.5 fL (80.0-94.0); Mean Platelet Volume 9.7 fL (7.4-10.4); Nucleated Red Blood Cells % 0 % (-); Platelet Count 691 10^3/uL (130-400); Red Blood Cell Count 3.03 10^6/uL (4.70-6.10); Red Cell Dist. Width 14.7 % (11.5-14.5); White Blood Cell Count 10.2 10^3/uL (4.8-10.8)
== END ==
LOC: OLABP 14:24
PROVIDERS: FAMILY PHYSICIAN Family Medicine
DX: K92.2 Gastrointestinal hemorrhage, unspecified (principal); S70.11XD Contusion of right thigh, subsequent encounter; D64.9 Anemia, unspecified; N39.0 Urinary tract infection, site not specified; B95.0 Streptococcus, group A, as the cause of diseases classified elsewhere; E87.0 Hyperosmolality and hypernatremia; E87.6 Hypokalemia; N17.9 Acute kidney failure, unspecified
CPT/HCPCS: 85025

== ENCOUNTER → 2024-07-09 11:17 | Outpatient (REF) | payer OTHER, MEDICARE, SELFPAY ==
[2024-07-09 12:58] LABS: % Basophils 0.6 % (0-2); % Eosinophils 2.7 % (0-6); % Immature Granulocytes 0.3 % (0-0.5); % Lymphocytes 11.6 % (20.5-51.1); % Monocytes 8.2 % (1.7-9.3); % Neutrophils 76.6 % (42.2-75.2); Absolute Basophils 0.1 10^3/uL (0-0.2); Absolute Eosinophils 0.3 10^3/uL (0-0.7); Absolute Lymphocytes 1.1 10^3/uL (1.2-3.4); Absolute Monocytes 0.8 10^3/uL (0.1-0.6); Absolute Neutrophils 7.3 10^3/uL (1.4-6.5); Hematocrit 25.1 % (39.0-52.0); Hemoglobin 7.9 g/dL (13.0-18.0); Mean Corp Hgb Conc. 31.5 g/dL (33.0-37.0); Mean Corpuscular Hgb 27.4 pg (27.0-31.0); Mean Corpuscular Volume 87.2 fL (80.0-94.0); Mean Platelet Volume 9.3 fL (7.4-10.4); Nucleated Red Blood Cells % 0 % (-); Platelet Count 602 10^3/uL (130-400); Red Blood Cell Count 2.88 10^6/uL (4.70-6.10); Red Cell Dist. Width 14.8 % (11.5-14.5); White Blood Cell Count 9.5 10^3/uL (4.8-10.8)
== END ==
LOC: OLABP 11:17
PROVIDERS: ATTENDING PHYSICIAN Family Medicine
DX: K92.2 Gastrointestinal hemorrhage, unspecified (principal); D64.9 Anemia, unspecified; N39.0 Urinary tract infection, site not specified; B95.0 Streptococcus, group A, as the cause of diseases classified elsewhere; E87.0 Hyperosmolality and hypernatremia; E87.6 Hypokalemia
CPT/HCPCS: 36415; 85025

== ENCOUNTER → 2024-07-11 13:51 | Outpatient (REF) | payer OTHER, MEDICARE, SELFPAY ==
[2024-07-11 14:36] LABS: % Basophils 0.7 % (0-2); % Eosinophils 2.8 % (0-6); % Immature Granulocytes 0.5 % (0-0.5); % Lymphocytes 10.4 % (20.5-51.1); % Monocytes 7.5 % (1.7-9.3); % Neutrophils 78.1 % (42.2-75.2); Absolute Basophils 0.1 10^3/uL (0-0.2); Absolute Eosinophils 0.3 10^3/uL (0-0.7); Absolute Lymphocytes 0.9 10^3/uL (1.2-3.4); Absolute Monocytes 0.7 10^3/uL (0.1-0.6); Absolute Neutrophils 6.9 10^3/uL (1.4-6.5); Hematocrit 25.5 % (39.0-52.0); Mean Corp Hgb Conc. 31.4 g/dL (33.0-37.0); Mean Corpuscular Hgb 27.4 pg (27.0-31.0); Mean Corpuscular Volume 87.3 fL (80.0-94.0); Nucleated Red Blood Cells % 0 % (-); Platelet Count 575 10^3/uL (130-400); Red Blood Cell Count 2.92 10^6/uL (4.70-6.10); Red Cell Dist. Width 14.6 % (11.5-14.5); White Blood Cell Count 8.8 10^3/uL (4.8-10.8)
== END ==
LOC: OLABP 13:51
PROVIDERS: ATTENDING PHYSICIAN Family Medicine
DX: K92.2 Gastrointestinal hemorrhage, unspecified (principal); S70.11XD Contusion of right thigh, subsequent encounter; D64.9 Anemia, unspecified; N39.0 Urinary tract infection, site not specified; B95.2 Enterococcus as the cause of diseases classified elsewhere; B95.0 Streptococcus, group A, as the cause of diseases classified elsewhere; E87.0 Hyperosmolality and hypernatremia; E87.6 Hypokalemia; N17.9 Acute kidney failure, unspecified; N18.1 Chronic kidney disease, stage 1; I10 Essential (primary) hypertension
CPT/HCPCS: 36415; 85025

== ENCOUNTER → 2024-07-12 11:43 | Outpatient (REF) | payer OTHER, MEDICARE, SELFPAY ==
[2024-07-12 13:16] LABS: % Basophils 0.3 % (0-2); % Immature Granulocytes 0.3 % (0-0.5); % Lymphocytes 8.8 % (20.5-51.1); % Monocytes 6.7 % (1.7-9.3); % Neutrophils 83.9 % (42.2-75.2); Absolute Lymphocytes 0.9 10^3/uL (1.2-3.4); Absolute Monocytes 0.7 10^3/uL (0.1-0.6); Absolute Neutrophils 8.7 10^3/uL (1.4-6.5); Hematocrit 24.9 % (39.0-52.0); Hemoglobin 8.1 g/dL (13.0-18.0); Mean Corp Hgb Conc. 32.5 g/dL (33.0-37.0); Mean Corpuscular Hgb 27.6 pg (27.0-31.0); Mean Corpuscular Volume 84.7 fL (80.0-94.0); Nucleated Red Blood Cells % 0 % (-); Platelet Count 586 10^3/uL (130-400); Red Blood Cell Count 2.94 10^6/uL (4.70-6.10); Red Cell Dist. Width 14.6 % (11.5-14.5); White Blood Cell Count 10.4 10^3/uL (4.8-10.8)
== END ==
LOC: OLABP 11:43
PROVIDERS: ATTENDING PHYSICIAN Family Medicine
DX: K92.2 Gastrointestinal hemorrhage, unspecified (principal); S70.11XD Contusion of right thigh, subsequent encounter; D64.9 Anemia, unspecified; N39.0 Urinary tract infection, site not specified; B95.0 Streptococcus, group A, as the cause of diseases classified elsewhere; E87.0 Hyperosmolality and hypernatremia; E87.6 Hypokalemia; N17.9 Acute kidney failure, unspecified
CPT/HCPCS: 36415; 85025

== ENCOUNTER → 2024-07-16 08:11 | Outpatient (REF) | payer OTHER, MEDICARE, SELFPAY ==
[2024-07-16 09:37] LABS: % Basophils 0.2 % (0-2); % Eosinophils 0.7 % (0-6); % Immature Granulocytes 0.8 % (0-0.5); % Monocytes 8.2 % (1.7-9.3); % Neutrophils 79.1 % (42.2-75.2); Absolute Eosinophils 0.1 10^3/uL (0-0.7); Absolute Immature Granulocytes 0.1 10^3/uL (0-0.05); Absolute Lymphocytes 1.2 10^3/uL (1.2-3.4); Absolute Monocytes 0.9 10^3/uL (0.1-0.6); Absolute Neutrophils 8.7 10^3/uL (1.4-6.5); Hematocrit 28.8 % (39.0-52.0); Hemoglobin 9.6 g/dL (13.0-18.0); Mean Corp Hgb Conc. 33.3 g/dL (33.0-37.0); Mean Corpuscular Hgb 28.4 pg (27.0-31.0); Mean Corpuscular Volume 85.2 fL (80.0-94.0); Mean Platelet Volume 9.9 fL (7.4-10.4); Nucleated Red Blood Cells % 0 % (-); Platelet Count 557 10^3/uL (130-400); Red Blood Cell Count 3.38 10^6/uL (4.70-6.10); Red Cell Dist. Width 14.8 % (11.5-14.5)
[2024-07-16 10:05] LABS: ALT (SGPT) 33 U/L (0-50); AST (SGOT) 31 U/L (17-59); Albumin 3.2 g/dl (3.5-5.0); Alkaline Phosphatase 87 U/L (38-126); Blood Urea Nitrogen 31 mg/dl (9-20); Calcium 9.2 mg/dl (8.4-10.2); Carbon Dioxide 24 mmol/L (22-30); Chloride 102 mmol/L (98-107); Glucose 83 mg/dl (70-99); Potassium 3.9 mmol/L (3.5-5.1); Sodium 140 mmol/L (135-145); Total Bilirubin 0.4 mg/dl (0.2-1.3); eGFR 52.41
== END ==
LOC: OLABP 08:11
PROVIDERS: ATTENDING PHYSICIAN Family Medicine
DX: G93.41 Metabolic encephalopathy (principal); M62.59 Muscle wasting and atrophy, not elsewhere classified, multiple sites; D64.9 Anemia, unspecified; R13.12 Dysphagia, oropharyngeal phase
CPT/HCPCS: 36415; 80053; 85025